=== PATIENT | female | born 1965 | race Caucasian/White ===

== ENCOUNTER 2016-12-30 20:21 | Inpatient (IN) | payer OTHER ==
[~2016-12-30] VITALS: Ht 162.6 cm; Wt 108.0 kg
[~2016-12-30 20:21] MED LIST: ALPR0.5T6 PO; BRIM15DR2 RIGHT EYE; CALC1TAB79 PO; DOCU-159 PO; DORZ10DR6 BOTH EYES; ESCI10TA48 PO; FAMO20TA18 PO; GABA-526 PO; HYDR-3012 PO; HYDR-902 PO; LANT3I SC; MEMA14CA PO; NEPH PO; NITR-58 PO; NOVO3I SC; ONDA4TAB14 PO; OXYB5TAB7 PO; POLY17PO6 PO
--- NOTE | 2016-12-30 20:50 | EN ---
Date/Time of Note Date/Time of Note DATE: 12/30/16 TIME: 20:49 ER Progress Note This 51-year-old female with history of acute renal disease, presents here in emergency department for multiple complaints, which initially evaluated in rapid medical evaluation, patient has been having weakness, having cough for 1 month now, fever on-and-off, patient has not had dialysis for 4 days because of weakness, patient also tripped and fell landed on the left shoulder because of the weakness. At this time, considering patient's risk factors and weakness and no dialysis for 4 days, patient is awaiting bed assignment in ER 1 for further evaluation and treatment. Patient is stable at this time, waiting for bed assignment. LONDON ZAMAN NP Dec 30, 2016 20:50
[2016-12-31] VITALS (16 sets, daily range): BP systolic 101–157; BP diastolic 39–74; PULSE 63–69; RESP 18–20; TEMP 97.5; Ht 162.6 cm; Wt 108.0 kg
--- NOTE | 2016-12-31 01:23 | RADRPT ---
PROCEDURE: Portable chest x-ray. CLINICAL INDICATION: Chest pain. TECHNIQUE: Portable AP view of the chest. COMPARISON: 10/29/2016. FINDINGS: No pulmonary edema or conolidation is identified. The cardiac silhouette is enlarged. No pleural e ffusion is seen. There is no pneumothorax. IMPRESSION: 1. No evidence of acute cardiopulmonary disease. 2. Enlarged cardiac silhouette. RPTAT: HTAR .Sahil Hodge MD, MD Date Time Electronically viewed and signed by .Sahil Hodge MD, MD on 12/31/2016 01:23 .R/
--- NOTE | 2016-12-31 01:34 | RADRPT ---
PROCEDURE: CT Brain without contrast. CLINICAL INDICATION: Fall, headache. TECHNIQUE: A CT of the brain was performed utilizing axial sections from the skull base through th e vertex without contrast. Multiplanar re-formations were generated. Images were reviewed on a high- resolution PACS workstation. CTDIvol: 45.01 mGy. DLP: 720.23 mGy-cm. One or more of the following dose reduction techniques were used: - Automated exposure control. - Adjustment of the mA and/or kV according to patient size. - Use of iterative reconstruction technique. COMPARISON: None available FINDINGS: There is mild generalized volume loss. No hydrocephalus is seen. There is no mass effect. No acute intracranial hemorrhage is identified. There is no extra-axial collection. No CT evidence of acute infarction is identified. A small chronic infarction is identified in the left frontal lobe. There i s patchy low attenuation in the supratentorial white matter, a nonspecific finding which most likely represents the sequela of mild chronic microvascular ischemic disease. There are moderate atherosc lerotic arterial calcifications. There is mild mucosal disease in the paranasal sinuses. The visualized mastoid air cells are clear. The ossesous structures are unremarkable. The extracranial soft tissues are unremarkable. The patie nt is status post bilateral lens replacement surgery. IMPRESSION: 1. No acute intracranial pathology. 2. Mild generalized volume loss. 3. Mild chronic microvascular ischemic changes. 4. Small chronic infarction in the left frontal lobe. 5. Atherosclerotic arterial calcifications. RPTAT: HTAR .Sahil Hodge MD, MD Date Time Electronically viewed and signed by .Sahil Hodge MD, on 12/31/2016 01:34 .R/
[2016-12-31] MEDS ORDERED: morphine 4 MG/ML VIAL IV STA (02:24)
[2016-12-31] MEDS ORDERED: ONDANSETRON 4 MG INJ IV STA (02:24)
[2016-12-31 02:25] LABS: BASOPHIL # 0.1 10^3/ul (0.0-0.1); BASOPHILS % 0.5 % (0.0-2.0); EOSINOPHILS # 0.4 10^3/ul (0.0-0.5); EOSINOPHILS % 2.7 % (0.0-7.0); HEMATOCRIT 30.1 % (37.0-47.0); HEMOGLOBIN 10.3 g/dl (12.0-16.0); LYMPHOCYTES # 2.7 10^3/ul (0.8-2.9); LYMPHOCYTES % 19.3 % (15.0-51.0); MEAN CORPUSCULAR HEMOGLOBIN 31.8 pg (29.0-33.0); MEAN CORPUSCULAR VOLUME 93.6 fl (82.0-101.0); MEAN PLATELET VOLUME 9.1 fl (7.4-10.4); MONOCYTE # 0.7 10^3/ul (0.3-0.9); MONOCYTES % 5.2 % (0.0-11.0); NEUTROPHIL # 10.2 10^3/ul (1.6-7.5); NEUTROPHILS % 72.3 % (39.0-77.0); PLATELET COUNT 175 10^3/UL (140-440); RED BLOOD COUNT 3.22 10^6/ul (4.20-5.40); UNCORRECTED WBC 14.1 10^3/ul (4.8-10.8); WHITE BLOOD COUNT 14.1 10^3/ul (4.8-10.8)
[2016-12-31 02:41] LABS: ALBUMIN 4.5 g/dl (3.3-4.9); CHLORIDE 100 mmol/L (97-110)
[2016-12-31 02:42] LABS: POTASSIUM 5.7 mmol/L (3.5-5.1); SODIUM 144 mmol/L (135-144)
[2016-12-31 02:44] LABS: ALANINE AMINOTRANSFERASE 25 IU/L (13-69); ALBUMIN/GLOBULIN RATIO 1.32; ALKALINE PHOSPHATASE 261 IU/L (42-121); ANION GAP 30 (8-16); ASPARTATE AMINO TRANSFERASE 30 IU/L (15-46); BILIRUBIN,INDIRECT 0.1 mg/dl (0-1.1); BILIRUBIN,TOTAL 0.1 mg/dl (0.2-1.3); CARBON DIOXIDE 20 mmol/L (21-31); CREATININE 8.91 mg/dl (0.44-1.00); TOTAL PROTEIN 7.9 g/dl (6.1-8.1)
[2016-12-31 02:45] LABS: CALCIUM 8.3 mg/dl (8.4-10.2); GLUCOSE 160 mg/dl (70-220)
[2016-12-31 02:49] LABS: CONDITION 1; LH ANALYZER COMMENTS 1; SUSPECT 1
[2016-12-31 02:51] LABS: INR 1.06; PROTIME 13.8 Sec (12.2-14.2); PT RATIO 1.1
[2016-12-31 02:52] LABS: PARTIAL THROMBOPLASTIN TIME 20.6 Sec (25.0-35.0)
[2016-12-31 02:55] LABS: B-TYPE NATRIURETIC PEPTIDE 5890 PG/ML (0-125); BLOOD UREA NITROGEN 136 mg/dl (7-20)
[2016-12-31 03:03] LABS: TROPONIN-I < 0.012 ng/ml (0.00-0.12)
--- NOTE | 2016-12-31 05:25 | ERA ---
ER Documentation Chief Complaint Date/Time DATE: 12/31/16 TIME: 05:21 Chief Complaint glf this am, c/o pain left shoulder/arm HPI Morning. Patient says she has been feeling very weak and short of breath. She is that she has missed dialysis for the past week. No nausea no vomiting no chills. No focal neurological complaints. No other current complaints. ROS All systems reviewed and are negative except as per history of present illness. Medications Home Meds Active Scripts Ondansetron (Ondansetron Odt) 4 Mg Tab.rapdis, 4 MG PO Q6H Y for NAUSEA AND/OR VOMITING, #10 TAB Prov:GUILLERMO WHITE MD 11/07/16 Nitrofurantoin Monohyd Macrocr* (Macrobid*) 100 Mg Capsr, 100 MG PO BID for 10 Days, CAP Prov:GUILLERMO WHITE MD 11/07/16 Polyethylene Glycol* (Miralax*) 17 Gm Powd.pack, 17 GM PO DAILY for 30 Days, BOX Prov:BERRY LARA MD 07/04/16 Insulin Glargine* (Lantus*) 100 Unit/Ml Soln, 8 UNIT SC QAM for 30 Days, BOT Prov:BERRY LARA MD 07/04/16 Reported Medications Insulin Aspart* (Novolog Insulin Pen*) 100 Unit/Ml Soln, 0 SC .SLIDING SCALE Q6 , EA 11/06/16 Hydrocodone/Acetaminophen ([place] 10-325 Tablet) 1 Each Tablet, 1 EACH PO Q4, TAB 11/06/16 Calcium Carbonate/Vitamin D3 ([place] 500+D Tablet) 1 Each Tablet, 1 EACH PO DAILY , TAB 11/06/16 Famotidine* (Famotidine*) 20 Mg Tablet, 20 MG PO DAILY, #30 TAB 11/06/16 Hydroxyzine Hcl* (Hydroxyzine Hcl*) 50 Mg Tablet, 50 MG PO Q6H Y for ITCHING, # 30 TAB 11/06/16 Docusate Sodium* (Docusate Sodium*) 100 Mg Capsule, 200 MG PO QHS, #60 CAP 11/06/16 Brimonidine Tartrate* (Alphagan P*) 0.1%-15 Ml Opht Drops, 1 DROP RIGHT EYE BID , #1 EA 01/27/16 Dorzolamide/Timolol* (Dorzolamide/Timolol*) 10 Ml Drops, 1 DROP BOTH EYES BID, # 1 EA 01/27/16 Memantine* (Namenda* XR) 14 Mg Cap.spr.24, 14 MG PO DAILY, #30 TAB 12/22/15 Gabapentin* (Gabapentin*) 600 Mg Tablet, 600 MG PO TID, #180 TAB GABAPENTIN 600 MG TID; 3 CAPS @ HS 12/22/15 Escitalopram Oxalate* (Escitalopram Oxalate*) 10 Mg Tablet, 10 MG PO QAM, #30 TAB 12/22/15 Multivit/Ca Carb/B Cmplx/Fa* (Kacey-Michael*) 1 Tab Tab, 1 TAB PO DAILY, TAB 12/22/15 Alprazolam* (Alprazolam*) 0.5 Mg Tablet, 0.5 MG PO TID, TAB 12/22/15 Oxybutynin Chloride* (Ditropan*) 5 Mg Tablet, 5 MG PO BID 02/21/14 Allergies Allergies: Coded Allergies: Cephalosporins (Verified Allergy, Severe, 11/06/16) Penicillins (Verified Allergy, Mild, 11/06/16) PMhx/Soc History of Surgery: Yes (APPENDECTOMY, HT STENTS X 2, LT ARM FISTULA) Anesthesia Reaction: No Hx Neurological Disorder: No Hx Respiratory Disorders: Yes (ASTHMA) Hx Cardiac Disorders: Yes (HTN, STENTS X 2) Hx Psychiatric Problems: Yes (DEPRESSION, ANXIETY) Hx Miscellaneous Medical Probl: Yes (ASTHMA, HTN, ESRD-DIALYSIS, DEPRESSION, FALL, GLAUCOMA) Hx Alcohol Use: No Hx Substance Use: Yes Hx Tobacco Use: No Smoking Status: Never smoker Physical Exam Vitals Vital Signs Date Time Temp Pulse Resp B/P Pulse Ox O2 Delivery O2 Flow Rate FiO2 12/31/16 02:01 73 20 137/73 99 Room Air 12/31/16 01:00 Nasal Cannula 2.0 12/30/16 20:25 98.2 83 20 169/70 97 Physical Exam Const: [] Head: Atraumatic Eyes: Normal Conjunctiva ENT: Normal External Ears, Nose and Mouth. Neck: Full range of motion..~ No meningismus. Resp: Clear to auscultation bilaterally Cardio: Regular rate and rhythm, no murmurs Abd: Soft, non tender, non distended. Normal bowel sounds Skin: No petechiae or rashes Back: No midline or flank tenderness Ext: No cyanosis, or edema Neur: Awake and alert Psych: Normal Mood and Affect Result Diagram: 12/31/16 0150 12/31/16 0150 Results 24 hrs Laboratory Tests Test 12/31/16 01:50 Activated Partial Thromboplast Time 20.6Sec Alanine Aminotransferase (ALT/SGPT) 25IU/L Albumin 4.5g/dl Albumin/Globulin Ratio 1.32 Alkaline Phosphatase 261IU/L Anion Gap 30 Aspartate Amino Transf (AST/SGOT) 30IU/L B-Type Natriuretic Peptide 5890PG/ML Basophils # 0.110^3/ul Basophils % 0.5% Blood Morphology Comment Blood Urea Nitrogen 136mg/dl Calcium Level 8.3mg/dl Carbon Dioxide Level 20mmol/L Chloride Level 100mmol/L Creatinine 8.91mg/dl Direct Bilirubin 0.00mg/dl Eosinophils # 0.410^3/ul Eosinophils % 2.7% Globulin 3.40g/dl Glucose Level 160mg/dl Hematocrit 30.1% Hemoglobin 10.3g/dl INR International Normalized Ratio 1.06 Indirect Bilirubin 0.1mg/dl Lymphocytes # 2.710^3/ul Lymphocytes % 19.3% Mean Corpuscular Hemoglobin 31.8pg Mean Corpuscular Hemoglobin Concent 34.0g/dl Mean Corpuscular Volume 93.6fl Mean Platelet Volume 9.1fl Monocytes # 0.710^3/ul Monocytes % 5.2% Neutrophils # 10.210^3/ul Neutrophils % 72.3% Nucleated Red Blood Cells # 0.010^3/ul Nucleated Red Blood Cells % 0.0/100WBC Platelet Count 85613^3/UL Potassium Level 5.7mmol/L Prothrombin Time 13.8Sec Prothrombin Time Ratio 1.1 Red Blood Count 3.2210^6/ul Red Cell Distribution Width 18.0% Sodium Level 144mmol/L Total Bilirubin 0.1mg/dl Total Protein 7.9g/dl Troponin I < 0.012ng/ml White Blood Count 14.110^3/ul Current Medications Medications (Trade) Dose Ordered Sig/Renan Route PRN Reason Start Time Stop Time Status Last Admin Dose Admin Morphine Sulfate (morphine) 4 mg ONCE STAT IV 12/31/16 02:24 12/31/16 02:25 DC 12/31/16 03:18 Ondansetron HCl (Zofran Inj) 4 mg ONCE STAT IV 12/31/16 02:24 12/31/16 02:25 DC 12/31/16 03:18 Procedures/MDM EKG: Rate/Rhythm: Normal Sinus Rhythm QRS, ST, T-waves: No changes consistent w/ acute ischemia Impression: No evidence of ischemia or arrhythmia Chest X-ray 1V Interpreted by me: Soft Tissue: No acute abnormalities Bones: No acute abnormalities Mediastinum/Cardiac Silhouette/Lungs: No acute abnormalities Patient's heart failure symptoms is concerning for acute decompensation and will require inpatient workup and monitoring. Further w/u for ischemia, arrhythmia, PE or dissection will be deferred to the inpatient team. Accepting Care Team: Current data and ongoing care discussed. Time: 5:30 AM Primary Provider: Hospitalist Consulting: [XOXOXO] Outstanding Data: none Departure Diagnosis: Primary Impression: CHF (congestive heart failure) Qualified Code: I50.9 - Congestive heart failure, unspecified congestive heart failure chronicity, unspecified congestive heart failure type Condition: Serious CELINA SHEPHERD Dec 31, 2016 05:25
[2016-12-31] MEDS ORDERED: ONDANSETRON 4 MG INJ IV PRN (06:30)
[2016-12-31] MEDS ORDERED: NITROGLYCERIN (SL) 0.4 MG TAB SL PRN (06:30)
[2016-12-31] MEDS ORDERED: hydrOXYzine HCL 50 MG TAB PO PRN (06:30)
[2016-12-31] MEDS ORDERED: ACETAMINOPHEN 325 MG TAB PO PRN (06:30)
[2016-12-31] MEDS ORDERED: NACL 0.9% 3 ML SYG IV SCH (06:30)
[2016-12-31] MEDS ORDERED: DOCUSATE SODIUM 100 MG CAP PO PRN (06:30)
--- NOTE | 2016-12-31 06:33 | HP ---
Date/Time of Note Date/Time of Note DATE: 12/31/16 TIME: 06:16 Assessment/Plan VTE Prophylaxis VTE Prophylaxis Intervention: heparin Lines/Catheters IV Catheter Type (from Nrsg): Saline Lock Assessment/Plan Assessment/Plan 51 yo female with a past medical history of ESRD on HD, Type II DM, Essential Hypertension, Diabetic Neuropathy, Anemia of chronic disease, Obesity, diabetic neuropathy/nephropathy, depression, who came in for generalized weakness, fall and missed dialysis. 1. Generalized weakness - multifactorial - missed dialysis/CHF exac/possible flu - will admit the patient to telemetry, fall precautions 2. CHF exac - acute on chronic diastolic dysfunction - last EF 55% - will consult cardiology, optimize medications, repeat ECHO, cycle cardiac markers, check TSH/Mag, remove fluid via dialysis 3. Leukocytosis - possible influenza - will check influ A/B, cover with broad spectrum because of previous history - Cefepime/Vanc for possible HCAP, de- escalate as needed 4. ESRD on HD - missed dialysis, consult nephro, dialysis as per nephro 5. Essential hypertension - continue home meds 6. Type II DM - check hgba1c, ISS, lantus/novolog 7. Anemia of CKD - monitor H/H, transfuse as needed 8. Depression - continue with lexapro 9. Left shoulder pain - xr left shoulder 10. Obesity - CCD/Renal diet 11. GI ppx - pepcid 12. DVT ppx - heparin answered all of their questions. as per clinical course. this history and physical took greater then 45 minutes to complete HPI/ROS Admit Date/Time Admit Date/Time Dec 31, 2016 at 06:17 am Hx of Present Illness 51 yo female with a past medical history of ESRD on HD, Type II DM, Essential Hypertension, Diabetic Neuropathy, Anemia of chronic disease, Obesity, diabetic neuropathy/nephropathy, depression, who came in for generalized weakness, fall and missed dialysis. The patient had missed her last dialysis session , because she was feeling sick. She has flu-like symptoms, including cough, runny nose, generalized malaise, muscle weakness, fevers/chills, and fatigue. There is a lot of sick contacts because she goes to dialysis. Secondary to her missing her dialysis, she had dizziness and had a fall, did not lose consciousness. She did however hit her left fistula site at that time, and complains of left shoulder pain. Does have shortness of breath, no chest pain. Denies any nausea/vomiting/diarrhea/constipation, urinary/bowel irregularities, or other constitutional symptoms. ECHO: 02/17/2016 Conclusions 1. Normal left ventricular systolic function. Normal left ventricular cavity size. Normal left ventricular wall thickness. Ejection fraction is visually estimated at 55 %. 2. Mitral valve leaflets appear mildly thickened. Trace mitral regurgitation. 3. Estimated peak PA systolic pressure 43 mmHg. There is moderate to severe tricuspid regurgitation. ROS 14 point review of systems completed, please refer to HPI for any positive findings PMH/Family/Social Past Medical History anemia of chronic kidney disease, diabetic neuropathy/nephropathy, depression Medical History: congestive heart failure, coronary artery disease, diabetes, GERD, hypertension, renal disease Past Surgical History left AV fistula, left arm debridement Past Surgical Hx: angioplasty, appendectomy, cholecystectomy Family History Significant Family History: no pertinent family hx Social History Alcohol Use: none Smoking Status: Never smoker Drug Use: none Exam/Review of Systems Vital Signs Vitals Vital Signs Date Time Temp Pulse Resp B/P Pulse Ox O2 Delivery O2 Flow Rate FiO2 12/31/16 02:01 73 20 137/73 99 Room Air 12/31/16 01:00 2.0 12/30/16 20:25 98.2 Exam Exam Gen Mellisa: mild to moderate distress 2/2 to weakness, AAOx4, obese female HEENT: NC/AT, PERRLA, EOMI, no pharyngeal erythema, no tonsillar exudates, no lymphadenopathy, no JVD, no carotid bruits NECK: supple, no thyromegaly THORAX: symmetrical, no obvious deformities CV: S1S2, RRR, no M/G/R Lungs: diminished breath sounds to the bases bilaterally, no overt wheezing, bibasilar crackles Abd: soft, NT/ND, +BS, no rebound, no guarding, neg HSM, protuberant EXT: no edema, no ecchymosis, no clubbing, left upper extremity fistula patent - bruit, pain with movement Neuro: CN II-XII grossly intact, no focal deficits Psych: fair mood and affect Skin: C/D/I Labs Result Diagram: 12/31/1614912/31/[address] brain IMPRESSION: 1. No acute intracranial pathology. 2. Mild generalized volume loss. 3. Mild chronic microvascular ischemic changes. 4. Small chronic infarction in the left frontal lobe. 5. Atherosclerotic arterial calcifications. CXR IMPRESSION: 1. No evidence of acute cardiopulmonary disease. 2. Enlarged cardiac silhouette. BERRY LARA MD Dec 31, 2016 06:27
[2016-12-31] MEDS ORDERED: VANCOMYCIN IV PER PHARMACY XX SCH (07:00)
[2016-12-31] MEDS ORDERED: GLUCOSE GEL 15 GRAM TUBE BUCCAL PRN (08:00)
[2016-12-31] MEDS ORDERED: GLUCAGON 1 MG INJ IM PRN (08:00)
[2016-12-31] MEDS: INSULIN ASPART [NOVOLOG] 3 ML PEN SC SCH ×4 (08:00→20:43)
[2016-12-31] MEDS ORDERED: DEXTROSE 50% 50 ML SYRINGE IV PRN ×2 (08:00)
[2016-12-31] MEDS ORDERED: GLUCOSE GEL 15 GRAM TUBE PO PRN ×2 (08:00)
[2016-12-31] MEDS: MEMANTINE 5 MG TAB PO SCH ×2 (09:00→20:30)
[2016-12-31] MEDS ORDERED: ALPRAZOLAM 0.5 MG TAB PO SCH (09:00)
[2016-12-31] MEDS: ALPRAZOLAM 0.25 MG TAB PO SCH ×3 (09:00→20:30)
[2016-12-31] MEDS: OXYBUTYNIN 5 MG TAB PO SCH ×2 (09:00→20:30)
[2016-12-31] MEDS ORDERED: FAMOTIDINE 20 MG INJ IV SCH (09:00)
[2016-12-31] MEDS: GABAPENTIN 300 MG CAP PO SCH ×3 (09:00→20:30)
[2016-12-31] MEDS ORDERED: CEFEPIME 1GM/50 ML (PMX) 50 ML IVPB SCH (09:00)
[2016-12-31] MEDS: POLYETHYLENE GLYCOL 17 GM PACKET PO SCH (09:00)
[2016-12-31] MEDS: ESCITALOPRAM 10 MG TAB PO SCH (09:00)
[2016-12-31] MEDS: MULTIVIT/CA CARB/B CMPLX/FA TAB PO SCH (09:00)
[2016-12-31] MEDS ORDERED: NITROFURANTOIN (SR) 100 MG CAP PO SCH (09:00)
[2016-12-31] MEDS: CALCIUM/VITAMIN D (500/200) TAB PO SCH (09:00)
[2016-12-31] MEDS: BRIMONIDINE 0.1% 5 ML OPH RIGHT EYE SCH ×2 (09:02→20:29)
[2016-12-31] MEDS: SOD CHLORIDE 0.9% 1,000 ML IV SCH (09:02)
[2016-12-31] MEDS: DORZOLAMIDE/TIMOLOL 10 ML OPH BOTH EYES SCH ×2 (09:03→20:29)
[2016-12-31] MEDS: HEPARIN 5,000 UNIT/0.5 ML SYG SC SCH ×2 (09:09→20:40)
[2016-12-31] MEDS ORDERED: VANCOMYCIN 2 GM in SOD CHLORIDE 0.9% 500 ML IVPB SCH (09:10)
[2016-12-31] MEDS: INSULIN GLARGINE [LANtus] 3 ML PEN SC SCH (09:17)
[2016-12-31] MEDS: LEVOFLOXACIN 500MG/D5W (PMX) 100 ML IVPB SCH ×2 (10:37→12:07)
[2016-12-31 10:39] LABS: CREATINE KINASE 32 IU/L (23-200)
[2016-12-31 10:40] LABS: CHOL/HDL RATIO 2.2 RATIO; MAGNESIUM 2.6 mg/dl (1.7-2.5)
[2016-12-31 10:48] LABS: CK-MB 1.28 ng/ml (0.0-2.4)
[2016-12-31 10:54] LABS: TROPONIN-I < 0.012 ng/ml (0.00-0.12)
[2016-12-31 11:11] LABS: THYROID STIMULATING HORMONE 2.78 MIU/L (0.465-4.680)
--- NOTE | 2016-12-31 12:38 | RADRPT ---
PROCEDURE: XR Left Shoulder. CLINICAL INDICATION: Left shoulder pain. TECHNIQUE: Two views. Frontal and scapular Y-view. COMPARISON: No prior study is available for comparison. FINDINGS: There is no fracture or dislocation. The soft tissues are normal. Articular surfaces are intact. There is no lytic or blastic lesion. Surgical clips are present in the soft tissues of the left upper extremity medially. IMPRESSION: 1. Prior left upper extremity soft tissue surgery. 2. Otherwise unremarkable images of the left shoulder. RPTAT: QQ .Miguelito Stroud MD, MD Date Time Electronically viewed and signed by .Miguelito Stroud MD, MD on 12/31/2016 12:37 .R/
--- NOTE | 2016-12-31 14:47 | CONS ---
DATE OF ADMISSION: 12/31/2016 DATE OF CONSULTATION: 12/31/2016 INFECTIOUS DISEASE CONSULTATION REASON FOR CONSULTATION: Antibiotic management. HISTORY OF PRESENT ILLNESS: Martita Lua is a 51-year-old female with numerous problems including end-stage renal disease, on hemodialysis, who comes in for generalized weakness, a fall, and missed dialysis. Her past problems include: 1. End-stage renal disease on hemodialysis. 2. Adult-onset diabetes mellitus. 3. Essential hypertension. 4. Diabetes. 5. Diabetic neuropathy. 6. Anemia of chronic disease. 7. Obesity. 8. Depression. Acutely, the patient missed her last dialysis on 12/26/2016 because she was feeling sick wi th flu-like illness, cough, runny nose, generalized malaise. She developed dizziness, had a fall, b ut did not lose consciousness. She did, however, hit her left fistula site at the time and complain s of left shoulder pain. She has shortness of breath, no chest pain. She denies any nausea, vomiti ng, diarrhea, constipation, urinary or bowel irregularities, or other constitutional symptoms. On a dmission, her white count was 14.1, H and H of 10.3 and 30.1, platelet count 175,000. BUN and creat inine 136/8.91. CT scan of the brain showed no acute intracranial pathology, mild generalized volum e loss, mild chronic ischemic changes, small chronic infarction in the left frontal lobe, and athero sclerotic arterial calcifications. She had no evidence for acute cardiopulmonary disease, enlarged cardiac silhouette. PAST MEDICAL HISTORY: Includes GERD, coronary artery disease with congestive heart failure, and as noted, diabetes and end-stage renal disease. She has a left AV fistula. She had a left arm debride ment. She had angioplasty, appendectomy, and cholecystectomy. SOCIAL HISTORY: She does not smoke, drink or abuse drugs. ALLERGIES: NONE TO PENICILLIN, SULFA, OR FOODS. MEDICATIONS: Per chart. REVIEW OF SYSTEMS: As per HPI. PHYSICAL EXAMINATION: GENERAL: The patient is a relatively obese, well-developed, female who is alert, responsive, in no acute distress. VITAL SIGNS: Stable. She is afebrile. SKIN: Without generalized rash. HEENT: Within normal limits. NECK: Supple. LYMPH NODES: None palpable. CHEST: Decreased breath sounds at the bases. HEART: Without murmur or gallop. ABDOMEN: Soft, nontender, without organosplenomegaly or masses. EXTREMITIES: She has a left upper extremity fistula with a bruit, without cyanosis, clubbing, or ed karen. RECTAL AND GENITAL: Deferred. NEUROLOGIC: No focal neurological abnormalities. ANCILLARY LABORATORY DATA: Her 2-D echo showed a good ejection fraction of 55%, normal left ventric ular cavity size. IMPRESSION AND PLAN: The patient is started on vancomycin and also cefepime. These were discontinu ed, and she is currently on Levaquin. The patient was mostly short of breath. She missed dialysis. SHE IS SUPPOSEDLY ALLERGIC TO PENICILLIN AND CEPHALOSPORINS. She has some leukocytosis, etiology of which is unclear. She also has a cough, and she has had intermittent fevers. Currently, she is afebrile. Will observe her on current therapy on Levaquin. She has already received vancomycin as noted and cefepime. I will dictate my findings to the hospitalist. Dictated By: AMINTA STALLWORTH MD, JD/RERE Conf#: [id number] DID#: [id number]
[2016-12-31 16:20] LABS: CREATINE KINASE 29 IU/L (23-200)
[2016-12-31 16:29] LABS: CK-MB 1.28 ng/ml (0.0-2.4)
[2016-12-31 16:33] LABS: TROPONIN-I < 0.012 ng/ml (0.00-0.12)
--- NOTE | 2016-12-31 18:33 | RADRPT ---
Echocardiogram Report Patient Name: MARC CONTRERAS Gender: Female Date: 1965 Study Date: 31-Dec-2016 Masonry Contractor: Paolo Dee [facility] Location: [id number] Ref. Physician: BERRY LARA Quality: Good Procedures: Transthoracic echocardiogram with complete 2D, M-Mode, and doppler examination. Indications: Congestive Heart Failure. 2D/M Mode Doppler Measurement Value Normal Ranges Measurement Value Normal Ranges LVIDd 2D 5.4 3.5 - 5.6 cm AV Mean Nando 1.6 m/sec LVIDs 2D 3.3 2.1 - 4.1 cm AV Mean PG 11.0 mmHg LVPWd 2D 0.9 0.6 - 1.1 cm AV Peak Nando 2.1 m/sec IVSd 2D 1.0 0.6 - 1.1 cm AV Peak PG 17.8 mmHg AoR Diam 2D 2.3 2.0 - 3.7 cm AV VTI 53.2 cm EDV 2D 141.4 cm3 LVOT Peak Nando 1.4 m/sec ESV 2D 35.7 cm3 LVOT Peak PG 7.4 mmHg LA Dimen 2D 4.1 2.3 - 4.0 cm MV E Peak Nando 1.0 m/sec MV A Peak Nando 0.8 m/sec MV E/A 1.2 MV Decel Time 177 msec MV Decel [place] 6 MV E/A 1.2 TR Peak Nando 3.3 m/sec TR Peak PG 43.0 mmHg RVSP 46.0 mmHg Findings Left Ventricle: Normal left ventricular systolic function. Normal left ventricular cavity size. Normal left ventricular wall thickness. Ejection fraction is visually estimated at 55 %. Abnormal Diastolic Function. Right Ventricle: Normal right ventricular size. Normal right ventricular systolic function. Left Atrium: There is mild enlargement of left atrium. LA Dimension4.10 cm. Right Atrium: The right atrium is normal in size. Mitral Valve: Normal appearance of the mitral valve. Mild mitral annular calcification. Trace mitral regurgitation. Aortic Valve: Aortic sclerosis without stenosis. Aortic cusps appear mildly calcified. No aortic regurgitation. Tricuspid Valve: Normal appearance of the tricuspid valve. Estimated peak PA systolic pressure 46 mmHg. There is mild to moderate tricuspid regurgitation. Pulmonic Valve: Normal pulmonic valve appearance. Pericardium: Normal pericardium with no significant pericardial effusion. Aorta: Normal aortic root. IVC: Normal size and normal respiratory collapse consistent with normal right atrial pressure. Conclusions 1.Normal left ventricular systolic function. Normal left ventricular cavity size. Normal left ventricular wall thickness. Ejection fraction is visually estimated at 55 %. Abnormal Diastolic Function. 2.Normal right ventricular size. Normal right ventricular systolic function. 3.There is mild enlargement of left atrium. 4.The right atrium is normal in size. 5.Estimated peak PA systolic pressure 46 mmHg. There is mild to moderate tricuspid regurgitation. 6.Aortic sclerosis without stenosis. No aortic regurgitation. 7.Trace mitral regurgitation. 8.Normal pericardium with no significant pericardial effusion. Electronically Signed By: Brian Alvarenga 31-Dec-2016 18:33:21 -0800 Patient Name: MARC CONTRERAS Study Date: 31-Dec-2016 [id number]
--- NOTE | 2016-12-31 18:51 | CONS ---
DATE OF ADMISSION: 12/31/2016 DATE OF CONSULTATION: 12/31/2016 TYPE OF CONSULTATION: Cardiology. REASON FOR CONSULTATION: Congestive heart failure. REQUESTING PHYSICIAN: Dr. Velázquez from the hospitalist service. HISTORY OF PRESENT ILLNESS: Ms. Lua is a 51-year-old female with a history of end-stage renal disease on hemodialysis, diabetes mellitus, hypertension, anemia, obesity, depression who initially presented with complaints of generalized weakness, shortness of breath, stating she had missed dialy sis. Upon arrival, temperature of 98.2, blood pressure 169/70, pulse 83, respiratory rate 20, satur ating 97%. The patient's labs revealed a white cell count of 14.1, hemoglobin 10.3, platelet count of 175. Sodium of 144, potassium of 5.7, creatinine 8.91, BUN of 136, AST 30, ALT 25. Troponin neg ative. BNP 5890. INR 1.0. The patient underwent a shoulder x-ray revealing prior left upper extre mity soft-tissue surgery and a chest x-ray revealing no evidence of acute cardiopulmonary disease an d a large cardiac silhouette and a head CT that revealed no acute intracranial pathology, mild gener alized volume loss, mild chronic microvascular ischemic changes, small chronic infarcts in left fron ramon lobe. The patient's electrocardiogram revealed normal sinus rhythm, rate of 72, normal axis, no rmal intervals with nonspecific ST and T abnormalities diffusely. The patient subsequently admitted to the floor and since admit to the floor has stable vital signs. The patient has been placed on l evofloxacin and is to undergo hemodialysis for volume removal. PAST MEDICAL HISTORY: As above in HPI. MEDICATIONS CURRENTLY IN HOSPITAL: 1. Levofloxacin ____ mg IV q.12. 2. Heparin 5000 subQ q.12. 3. Alphagan eye drops. 4. Vitamin D. 5. ____ eye drops. 6. Lexapro. 7. Neurontin 600 mg t.i.d. 8. Lantus. 9. Ditropan. 10. MiraLax. 11. Namenda 5 mg b.i.d. 12. Xanax 0.5 mg p.o. t.i.d. 13. Sublingual nitroglycerin p.r.n. 14. Tylenol p.r.n. 15. Mullan p.r.n. 16. Colace p.r.n. ALLERGIES: 1. CEPHALOSPORINS. 2. PENICILLINS. SOCIAL HISTORY: No tobacco, ETOH, illicit drug use. FAMILY HISTORY: No history of sudden cardiac or early CAD. REVIEW OF SYSTEMS: As above in HPI. CONSTITUTIONAL: No fevers, chills. PULMONARY: Shortness of breath. CARDIOVASCULAR: Congestive heart failure. GASTROINTESTINAL: No vomiting. GENITOURINARY: End-stage renal disease. PSYCHIATRIC: Positive psychiatric history by medications. NEUROLOGIC: No documented history of CVA. PHYSICAL EXAMINATION: VITAL SIGNS: Temperature of 98.6, blood pressure 118/59, pulse 64, respiratory rate 18, saturating 97%. GENERAL: The patient is alert, awake, complaining of shortness of breath. NECK: JVP approximately 9 to 10 cm water. CHEST: Bibasilar crackles. HEART: Regular rate and rhythm. S1, S2. I/ systolic murmur. Nondisplaced PMI. ABDOMEN: Positive bowel sounds, soft. EXTREMITIES: Trace edema. Pulses 1+ bilaterally at posterior tibial. LABORATORIES: As above in HPI with most recently from today: Troponin negative x3. LDL 84, HDL 80 . TSH 2.7. Magnesium 2.6. IMAGING STUDIES: As above in HPI. No further imaging studies for my review at this time. ELECTROCARDIOGRAM: As above in HPI. No further electrocardiograms for my review at this time. IMPRESSION: 1. Abnormal electrocardiogram, assess for acute coronary syndrome. 2. Shortness of breath, assess for congestive heart failure. 3. Increased BNP, assess for congestive heart failure. 4. Hypertension, currently under reasonable control. 5. End-stage renal disease on hemodialysis. 6. Diabetes mellitus. 7. Psychiatric disorder. 8. Hyperkalemia. RECOMMENDATIONS: 1. At this time would maintain the patient on telemetry monitoring to follow rhythm and rate contro l closely. 2. Complete the patient's rule-out for myocardial infarction, ensure this patient's constellation o f symptoms is not due to an acute coronary syndrome such as acute myocardial infarction. 3. Continue the patient's hemodialysis for volume removal. 4. Check a fasting lipid panel for general risk stratification, initiate lipid-lowering medication as necessary. 5. Check a 2D echo for reassessment of the patient's ejection fraction since it's been almost a yea r since most recent assessment. 6. Follow the patient's blood pressure closely with likely need for initiation of low-dose antihype rtensives and also place patient on low-dose hydralazine afterload reduction. 7. Continue the patient's antibiotics and follow up all culture data. Thank you for allowing me to take part in the care of this patient. I will continue to follow along very closely with you with further recommendations to be made as the patient progresses through her inpatient hospital clinical course. Dictated By: JORDI SARABIA/RERE Conf#: [id number] DID#: [id number] CC: BERRY VELÁZQUEZ MD;*EndCC*
--- NOTE | 2016-12-31 20:28 | QN ---
Documentation Comment [id number] RENAL CONSULT BRANDO TREVIÑO MD Dec 31, 2016 20:28
--- NOTE | 2016-12-31 23:05 | CONS ---
DATE OF ADMISSION: 12/31/2016 DATE OF CONSULTATION: TYPE OF CONSULTATION: Nephrology. HISTORY OF PRESENT ILLNESS: The patient has a history of ESRD, history of left arm fistula, history of diabetes mellitus, diabetic neuropathy, anemia, history of psychiatric disorder, history of foot cellulitis, history of UTI, history of pleural effusion, presented back with missing dialysis and is being admitted for further management. The patient denies any chest pain, palpitation right now. PAST MEDICAL HISTORY: Positive for ESRD, hypertension, diabetes mellitus, psychiatric disorder, anemia, history of encephalopathy. ALLERGY HISTORY: 1. CEPHALOSPORIN. 2. PENICILLIN. SOCIAL HISTORY: Negative. FAMILY HISTORY: Negative. MEDICATION HISTORY: The patient is on: 1. Tylenol. 2. Xanax. 3. Calcium. 4. Vitamin D. 5. Docusate sodium. 6. Lexapro. 7. Pepcid. 8. Gabapentin. 9. Glucagon. 10. Levofloxacin. 11. Nitroglycerin. 12. Zofran. 13. MiraLax. REVIEW OF SYSTEMS: HEENT: Unremarkable. RESPIRATORY: Unremarkable. CARDIOVASCULAR: Unremarkable. ABDOMEN: No abdominal pain. EXTREMITIES: Swelling. CENTRAL NERVOUS SYSTEM: Unremarkable. PHYSICAL EXAMINATION: GENERAL: Obese, overweight female, awake, alert. VITAL SIGNS: Pulse of 50, blood pressure 118/59. HEENT: Head is atraumatic, normocephalic. The patient's pupils PERRLA. Conjunctivae: No icterus. NECK: Supple. LUNGS: Basilar rales noted. CARDIOVASCULAR: S1, S2 normal. ABDOMEN: Soft, obese. Bowel sounds present. No pulsatile, no palpable mass. EXTREMITIES: There is no cyanosis, clubbing. Edema positive. CENTRAL NERVOUS SYSTEM: The patient is awake, alert, moving both upper and lower extremities. AV fistula in left upper extremity noted. LABORATORY DATA: WBC 14.1, hematocrit 30.1, platelet count of _ The patient has sodium 144, potassium 5.7, BUN 136, creatinine 8.91. IMPRESSION: The patient has: 1. Uremia. 2. End-stage renal disease. 3. Hypertension. 4. Diabetes mellitus. 5. Atherosclerotic heart disease. 6. Dyslipidemia. 7. Diabetic nephropathy, retinopathy and neuropathy. 8. Hyperkalemia. 9. Leukocytosis. 10. Anemia. 11. History of arteriovenous fistula placement, left upper extremity. PLAN: Continue diabetic, renal diet. Hemodialysis has been ordered. The patient's electrolytes will be monitored. The patient may need 1 more dialysis tomorrow based upon the laboratory data. Thank you, Dr. Velázquez, for kindly asking me to see this patient in nephrology consultation. Dictated By: BRANDO TREVIÑO MD BS/RERE Conf#: [id number] DID#: [id number] MTDD
[2017-01-01] VITALS (12 sets, daily range): BP systolic 110–144; BP diastolic 52–71; PULSE 65–69; RESP 18–20
[2017-01-01] MEDS: HYDROCODONE/APAP (5/325) TAB PO PRN ×2 (00:21→08:31)
[2017-01-01 01:45] LABS: CREATINE KINASE 28 IU/L (23-200)
[2017-01-01 01:56] LABS: CK-MB 1.07 ng/ml (0.0-2.4)
[2017-01-01 01:59] LABS: TROPONIN-I < 0.012 ng/ml (0.00-0.12)
[2017-01-01] MEDS: SOD CHLORIDE 0.9% 1,000 ML IV SCH (04:46)
[2017-01-01 06:56] LABS: CK-MB 1.01 ng/ml (0.0-2.4)
[2017-01-01 06:59] LABS: TROPONIN-I 0.016 ng/ml (0.00-0.12)
[2017-01-01 07:14] LABS: CHOL/HDL RATIO 2.4 RATIO
[2017-01-01 07:44] LABS: POTASSIUM 4.9 mmol/L (3.5-5.1)
[2017-01-01 07:47] LABS: CREATININE 6.16 mg/dl (0.44-1.00)
[2017-01-01 07:48] LABS: CALCIUM 8.1 mg/dl (8.4-10.2)
[2017-01-01] MEDS: BRIMONIDINE 0.1% 5 ML OPH RIGHT EYE SCH ×2 (08:08→21:36)
[2017-01-01] MEDS: DORZOLAMIDE/TIMOLOL 10 ML OPH BOTH EYES SCH ×2 (08:08→21:35)
[2017-01-01] MEDS: FAMOTIDINE 20 MG INJ IV SCH (08:08)
[2017-01-01] MEDS: ESCITALOPRAM 10 MG TAB PO SCH (08:09)
[2017-01-01] MEDS: OXYBUTYNIN 5 MG TAB PO SCH ×2 (08:09→21:36)
[2017-01-01] MEDS: MEMANTINE 5 MG TAB PO SCH ×2 (08:09→21:38)
[2017-01-01] MEDS: MULTIVIT/CA CARB/B CMPLX/FA TAB PO SCH (08:09)
[2017-01-01] MEDS: GABAPENTIN 300 MG CAP PO SCH ×3 (08:09→21:38)
[2017-01-01] MEDS: ALPRAZOLAM 0.25 MG TAB PO SCH ×3 (08:09→21:36)
[2017-01-01] MEDS: CALCIUM/VITAMIN D (500/200) TAB PO SCH (08:09)
[2017-01-01] MEDS: INSULIN ASPART [NOVOLOG] 3 ML PEN SC SCH ×4 (08:10→21:00)
[2017-01-01] MEDS: INSULIN GLARGINE [LANtus] 3 ML PEN SC SCH (08:12)
[2017-01-01] MEDS: HEPARIN 5,000 UNIT/0.5 ML SYG SC SCH ×2 (08:12→21:39)
[2017-01-01] MEDS: POLYETHYLENE GLYCOL 17 GM PACKET PO SCH (08:19)
[2017-01-01 08:53] LABS: BASOPHILS % 0.1 % (0.0-2.0); EOSINOPHILS # 0.2 10^3/ul (0.0-0.5); EOSINOPHILS % 3.6 % (0.0-7.0); HEMOGLOBIN 9.7 g/dl (12.0-16.0); LYMPHOCYTES # 1.5 10^3/ul (0.8-2.9); LYMPHOCYTES % 22.7 % (15.0-51.0); MEAN CORPUSCULAR HEMOGLOBIN 31.6 pg (29.0-33.0); MEAN CORPUSCULAR HGB CONC 33.5 g/dl (32.0-37.0); MEAN CORPUSCULAR VOLUME 94.2 fl (82.0-101.0); MEAN PLATELET VOLUME 8.5 fl (7.4-10.4); MONOCYTE # 0.5 10^3/ul (0.3-0.9); MONOCYTES % 8.3 % (0.0-11.0); NEUTROPHIL # 4.2 10^3/ul (1.6-7.5); NEUTROPHILS % 65.3 % (39.0-77.0); PLATELET COUNT 176 10^3/UL (140-440); RED BLOOD COUNT 3.07 10^6/ul (4.20-5.40); RED CELL DISTRIBUTION WIDTH 17.8 % (11.5-14.5); UNCORRECTED WBC 6.4 10^3/ul (4.8-10.8); WHITE BLOOD COUNT 6.4 10^3/ul (4.8-10.8)
[2017-01-01 08:59] LABS: CONDITION 1; LH ANALYZER COMMENTS 1
--- NOTE | 2017-01-01 13:48 | CONS ---
Date/Time of Note Date/Time of Note DATE: 01/01/17 TIME: 13:32 Assessment/Plan Assessment/Plan Additional Assessment/Plan Dysphagia * Passed swallow evaluation * Esophagram with Gastrografin ordered * Start clear liquid diet * EGD on Friday with Dr. Lu if clinically indicated CHF/HTN * Cardiology following ESRD * on HD Type II DM Anemia * Likely secondary to CKD * Stool OB Obesity Further recommendations pending clinical course Patient seen in collaboration with Dr. Lu Consultation Date/Type/Reason Admit Date/Time Dec 31, 2016 at 06:17 am Type of Consultation: Gastroenterology Reason for Consultation Dysphagia Hx of Present Illness 51 YO obese F reports issues with swallowing for the last 2 months. Patient reports intermittent vomiting secondary to feeling that food is lodged at the bottom of her throat. 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 Patient states that tumor was preventing p.o. intake and she had a G-tube placed secondary to dysphagia. Patient states that the tumor resolved on its own without any type of treatment. She states that one day she was vomiting and tumor dislodged and was in emesis. Patient states she was previously treated at [facility] for esophageal tumor. Patient patient denies fever, chills, melena stools, and diarrhea. Patient reports intermittent epigastric pain but unsure of onset. Patient seems to have a constellation of symptoms and may be secondary to underlying mental health disorder. Patient also reports history of lymphoma that was diagnosed 2 years ago but unable to provide name of oncologist in her care. Patient reports completing 4 rounds of chemotherapy 2 years ago and does not recall any recent outpatient follow-up. Patient also has PMH of SRD on HD, Type II DM, Essential Hypertension, Diabetic Neuropathy, Anemia of chronic disease, Obesity, diabetic neuropathy/nephropathy , and depression. Past Medical History Medical History: congestive heart failure, coronary artery disease, diabetes, GERD, hypertension, renal disease Past Surgical History Past Surgical Hx: angioplasty, appendectomy, cholecystectomy Social History Alcohol Use: none Smoking Status: Never smoker Drug Use: none Exam/Review of Systems Vital Signs Vitals Vital Signs Date Time Temp Pulse Resp B/P Pulse Ox O2 Delivery O2 Flow Rate FiO2 01/01/17 12:23 97.9 67 18 110/52 97 12/31/16 06:45 Room Air 12/31/16 01:00 2.0 Intake and Output 12/31/16 12/31/16 01/01/17 15:00 23:00 07:00 Intake Total 750 ml Output Total 4500 ml Balance -3750 ml Exam Constitutional: alert, obese, oriented, well developed Psych: nl mood/affect Head: atraumatic Eyes: EOMI, nl conjunctiva, nl lids ENMT: nl external ears & nose Neck: non-tender Respiratory: normal air movement Cardiovascular: regular rate and rhythm Gastrointestinal: soft, tender (Epigastric) Musculoskeletal: nl extremities to inspection Neurological: BUTTER MAKER II-XII intact Results Result Diagram: 01/01/17 0557 01/01/17 0557 Results 24 hrs Laboratory Tests Test 12/31/16 14:48 12/31/16 17:20 12/31/16 20:43 01/01/17 00:38 Creatine Kinase 29 28 Creatine Kinase Index 4.4 3.8 Creatinine Kinase MB (Mass) 1.28 1.07 Troponin I < 0.012 < 0.012 Bedside Glucose 215 180 Test 01/01/17 05:57 01/01/17 07:51 01/01/17 11:25 Anion Gap 22 #H Basophils # 0.0 Basophils % 0.1 Blood Morphology Comment Blood Urea Nitrogen 77 #H Calcium Level 8.1 L Carbon Dioxide Level 26 Chloride Level 97 Cholesterol Level 180 Cholesterol/HDL Ratio 2.4 Creatine Kinase 30 Creatine Kinase Index 3.4 Creatinine 6.16 #H Creatinine Kinase MB (Mass) 1.01 Eosinophils # 0.2 Eosinophils % 3.6 Glucose Level 184 HDL Cholesterol 74 Hematocrit 29.0 L Hemoglobin 9.7 L LDL Cholesterol, Calculated 75 Lymphocytes # 1.5 Lymphocytes % 22.7 Mean Corpuscular Hemoglobin 31.6 Mean Corpuscular Hemoglobin Concent 33.5 Mean Corpuscular Volume 94.2 Mean Platelet Volume 8.5 Monocytes # 0.5 Monocytes % 8.3 Neutrophils # 4.2 Neutrophils % 65.3 Nucleated Red Blood Cells # 0.0 Nucleated Red Blood Cells % 0.0 Platelet Count 176 Potassium Level 4.9 Red Blood Count 3.07 L Red Cell Distribution Width 17.8 H Sodium Level 140 Triglycerides Level 154 H Troponin I 0.016 White Blood Count 6.4 # Bedside Glucose 141 219 Medications Medications Current Medications Sodium Chloride (NS) 1,000 ml @ 40 mls/hr Q24H IV Last administered on t 09:02; Admin Dose 40 MLS/HR; Start 12/31/16 at 06:04 Ondansetron HCl (Zofran Inj) 4 mg Q6H PRN IV NAUSEA AND/OR VOMITING; Start at 06:30 Nitroglycerin (Nitroglycerin (Sl Tab) 0.4 Mg) 1 tab Q5M PRN SL CHEST PAIN; Start 12/31/16 at 06:30 Acetaminophen (Tylenol Tab) 650 mg Q6H PRN PO PAIN LEVEL 1-3 OR FEVER; Start at 06:30 Acetaminophen/ Hydrocodone Bitart ([place] (5/325)) 1 tab Q6H PRN PO PAIN LEVEL 4 -6 Last administered on 01/01/17 08:31; Admin Dose 1 TAB; Start 12/31/16 at 06: 30 Docusate Sodium (Colace) 100 mg Q12H PRN PO CONSTIPATION Last administered on 20:45; Admin Dose 100 MG; Start 12/31/16 at 06:30 Heparin Sodium (Porcine) (Heparin (5000 Units/0.5 ml)) 5,000 unit Q12 SC Last administered on 01/01/17 08:12; Admin Dose 5,000 UNIT; Start 12/31/16 at 09:00 Brimonidine Tartrate (Alphagan P 0.1%) 1 drop BID RIGHT EYE Last administered on 01/01/17 08:08; Admin Dose 1 DROP; Start 12/31/16 at 09:00 Calcium/Vitamin D (Oyster Shell/ Vit-D (500/200)) 1 tab DAILY PO Last administered on 01/01/17 08:09; Admin Dose 1 TAB; Start 12/31/16 at 09:00 Dorzolamide/ Timolol (Cosopt) 1 drop BID BOTH EYES Last administered on 08:08; Admin Dose 1 DROP; Start 12/31/16 at 09:00 Escitalopram Oxalate (Lexapro) 10 mg QAM PO Last administered on 01/01/17 08: 09; Admin Dose 10 MG; Start 12/31/16 at 09:00 Gabapentin (Neurontin) 600 mg TID PO Last administered on 01/01/17 12:15; Admin Dose 600 MG; Start 12/31/16 at 09:00 Hydroxyzine HCl (Atarax) 50 mg Q6H PRN PO ITCHING; Start 12/31/16 at 06:30 Insulin Glargine (Lantus) 8 unit QAM SC Last administered on 01/01/17 08:12; Admin Dose 8 UNIT; Start 12/31/16 at 09:00 Multivit/Ca Carb/ B Cmplx/FA/Prenat (Kacey-Michael) 1 tab DAILY PO Last administered on 01/01/17 08:09; Admin Dose 1 TAB; Start 12/31/16 at 09:00 Oxybutynin Chloride (Ditropan) 5 mg BID PO Last administered on 01/01/17 08:09 ; Admin Dose 5 MG; Start 12/31/16 at 09:00 Polyethylene Glycol (Miralax) 17 gm DAILY PO ; Start 12/31/16 at 09:00 Memantine (Namenda) 5 mg BID PO Last administered on 01/01/17 08:09; Admin Dose 5 MG; Start 12/31/16 at 09:00 Alprazolam (Xanax) 0.5 mg TID PO Last administered on 01/01/17 12:15; Admin Dose 0.5 MG; Start 12/31/16 at 09:00 Miscellaneous Information 1 ea NOTE XX ; Start 12/31/16 at 08:00 Glucose (Glutose) 15 gm Q15M PRN PO DECREASED GLUCOSE; Start 12/31/16 at 08:00 Glucose (Glutose) 22.5 gm Q15M PRN PO DECREASED GLUCOSE; Start 12/31/16 at 08: 00 Dextrose (D50w Syringe) 25 ml Q15M PRN IV DECREASED GLUCOSE; Start 12/31/16 at 08:00 Dextrose (D50w Syringe) 50 ml Q15M PRN IV DECREASED GLUCOSE; Start 12/31/16 at 08:00 Glucagon (Glucagen) 1 mg Q15M PRN IM DECREASED GLUCOSE; Start 12/31/16 at 08:00 Glucose 15 gm 15 gm Q15M PRN BUCCAL DECREASED GLUCOSE; Start 12/31/16 at 08:00 Levofloxacin/ Dextrose (Levaquin 250 Mg/ D5W 50 ml (Pmx)) 50 ml @ 50 mls/hr Q48H IVPB ; Start 01/02/17 at 10:30 Famotidine (Pepcid Iv) 20 mg DAILY IV Last administered on 01/01/17 08:08; Admin Dose 20 MG; Start 01/01/17 at 09:00 Hydralazine HCl (Apresoline) 25 mg Q12 PO Last administered on 01/01/17 08:22 ; Admin Dose 25 MG; Start 12/31/16 at 21:00 TWAN LUDWIG Jan 01, 2017 13:48
--- NOTE | 2017-01-01 14:05 | PN ---
DATE: 01/01/2017 INFECTIOUS DISEASE PROGRESS NOTE SUBJECTIVE: The patient is alert, sitting up in a chair, complaining of right flank pain, no fevers . LABORATORY DATA: WBC today 6.4, no shift, no bands. INDWELLINGS: Left upper extremity AV fistula. MICROBIOLOGY: Nares swab came back negative for MRSA, influenza swab was negative. ANTIMICROBIALS: The patient is on Levaquin. PHYSICAL EXAMINATION: GENERAL: Morbidly obese, middle-aged woman who is alert, in no distress. HEENT: Head atraumatic, normocephalic. Sclerae anicteric. Buccal mucosa pink. NECK: Supple, trachea midline. CHEST: Rise symmetrical. Breath sounds clear. HEART: S1, S2. ABDOMEN: Soft. Bowel sounds present. Positive right CVA tenderness. The patient is also complain ing of some pain on the left upper quadrant, but tolerates palpation. EXTREMITIES: Without cyanosis. ASSESSMENT: 1. Systemic inflammatory response syndrome with leukocytosis on admission. 2. Right flank tenderness, possible urinary tract infection. 3. Morbid obesity. 4. End-stage renal disease, hemodialysis dependent. 5. Diabetes with diabetic neuropathy. PLAN: The patient remains stable. White blood cell count tracing down. We are going to straight c ath her urine and send it for culture. Consider ultrasound of the abdomen or CT to evaluate for nasreen n. Dictated By: SIOBHAN WATSON SPA ASSOCIATE for AMINTA TORREZ/RERE Conf#: [id number] DID#: [id number]
--- NOTE | 2017-01-01 16:00 | RADRPT ---
Vent Rate: 64 bpm RR Interval: 0 msec OK Interval: 178 msec QRS Duration: 84 msec QT Interval: 462 msec QTC Interval: 476 msec P-R-T [place]: 40 - 23 - 53 degrees Normal sinus rhythm Normal ECG Electronically Signed By: Zach Parks [id number]
--- NOTE | 2017-01-01 17:49 | RADRPT ---
PROCEDURE: US left upper extremity arterial system. CLINICAL INDICATION: Left upper extremity pain and swelling. Left upper extremity dialysis fistula . TECHNIQUE: Multiple longitudinal and transverse images of the left upper extremity dialysis fistul a was obtained with madrigal scale pulsed Doppler, and color Doppler imaging. COMPARISON: None available FINDINGS: The left upper extremity dialysis fistula appears patent with normal flow throughout. There is no s tenosis or occlusion. IMPRESSION: 1. Normal left upper extremity dialysis fistula. RPTAT: QQ .Miguelito Stroud MD, MD Date Time Electronically viewed and signed by .Miguelito Stroud MD, MD on 01/01/2017 17:48 .R/
--- NOTE | 2017-01-01 18:35 | CONS ---
Date/Time of Note Date/Time of Note DATE: 01/01/17 TIME: 18:34 Assessment/Plan Assessment/Plan Chief Complaint/Hosp Course IMPRESSION: The patient has: 1. Uremia. 2. End-stage renal disease. 3. Hypertension. 4. Diabetes mellitus. 5. Atherosclerotic heart disease. 6. Dyslipidemia. 7. Diabetic nephropathy, retinopathy and neuropathy. 8. Hyperkalemia. 9. Leukocytosis. 10. Anemia. 11. History of arteriovenous fistula placement, left upper extremity. PLAN HD AM Problems: Consultation Date/Type/Reason Admit Date/Time Dec 31, 2016 at 04:31 Initial Consult Date Type of Consultation: RENAL 24 HR Interval Summary Constitutional: other (WEAKNESS+), poor po Exam/Review of Systems Vital Signs Vitals Vital Signs Date Time Temp Pulse Resp B/P Pulse Ox O2 Delivery O2 Flow Rate FiO2 01/01/17 17:19 69 01/01/17 16:21 98.4 18 144/65 97 12/31/16 06:45 Room Air 12/31/16 01:00 2.0 Intake and Output 12/31/16 12/31/16 01/01/17 15:00 23:00 07:00 Intake Total 750 ml Output Total 4500 ml Balance -3750 ml Exam Respiratory: clear to auscultation Cardiovascular: regular rate and rhythm Gastrointestinal: soft Musculoskeletal: nl extremities to inspection Extremities: normal pulses Neurological: SENIOR MANUFACTURING TEST ENGINEER II-XII intact Results Result Diagram: 01/01/17 0557 01/01/17 0557 Results 24 hrs Laboratory Tests Test 12/31/16 20:43 01/01/17 00:38 01/01/17 05:57 01/01/17 07:51 Bedside Glucose 180 141 Creatine Kinase 28 30 Creatine Kinase Index 3.8 3.4 Creatinine Kinase MB (Mass) 1.07 1.01 Troponin I < 0.012 0.016 Anion Gap 22 #H Basophils # 0.0 Basophils % 0.1 Blood Morphology Comment Blood Urea Nitrogen 77 #H Calcium Level 8.1 L Carbon Dioxide Level 26 Chloride Level 97 Cholesterol Level 180 Cholesterol/HDL Ratio 2.4 Creatinine 6.16 #H Eosinophils # 0.2 Eosinophils % 3.6 Glucose Level 184 HDL Cholesterol 74 Hematocrit 29.0 L Hemoglobin 9.7 L LDL Cholesterol, Calculated 75 Lymphocytes # 1.5 Lymphocytes % 22.7 Mean Corpuscular Hemoglobin 31.6 Mean Corpuscular Hemoglobin Concent 33.5 Mean Corpuscular Volume 94.2 Mean Platelet Volume 8.5 Monocytes # 0.5 Monocytes % 8.3 Neutrophils # 4.2 Neutrophils % 65.3 Nucleated Red Blood Cells # 0.0 Nucleated Red Blood Cells % 0.0 Platelet Count 176 Potassium Level 4.9 Red Blood Count 3.07 L Red Cell Distribution Width 17.8 H Sodium Level 140 Triglycerides Level 154 H White Blood Count 6.4 # Test 01/01/17 11:25 01/01/17 17:14 Bedside Glucose 219 235 H Medications Medications Current Medications Sodium Chloride (NS) 1,000 ml @ 40 mls/hr Q24H IV Last administered on 09:02; Admin Dose 40 MLS/HR; Start 12/31/16 at 06:04 Ondansetron HCl (Zofran Inj) 4 mg Q6H PRN IV NAUSEA AND/OR VOMITING; Start at 06:30 Nitroglycerin (Nitroglycerin (Sl Tab) 0.4 Mg) 1 tab Q5M PRN SL CHEST PAIN; Start 12/31/16 at 06:30 Acetaminophen (Tylenol Tab) 650 mg Q6H PRN PO PAIN LEVEL 1-3 OR FEVER; Start at 06:30 Acetaminophen/ Hydrocodone Bitart ([place] (5/325)) 1 tab Q6H PRN PO PAIN LEVEL 4 -6 Last administered on 01/01/17 08:31; Admin Dose 1 TAB; Start 12/31/16 at 06: 30 Docusate Sodium (Colace) 100 mg Q12H PRN PO CONSTIPATION Last administered on 20:45; Admin Dose 100 MG; Start 12/31/16 at 06:30 Heparin Sodium (Porcine) (Heparin (5000 Units/0.5 ml)) 5,000 unit Q12 SC Last administered on 01/01/17 08:12; Admin Dose 5,000 UNIT; Start 12/31/16 at 09:00 Brimonidine Tartrate ([place] P 0.1%) 1 drop BID RIGHT EYE Last administered on 01/01/17 08:08; Admin Dose 1 DROP; Start 12/31/16 at 09:00 Calcium/Vitamin D (Oyster Shell/ Vit-D (500/200)) 1 tab DAILY PO Last administered on 01/01/17 08:09; Admin Dose 1 TAB; Start 12/31/16 at 09:00 Dorzolamide/ Timolol (Cosopt) 1 drop BID BOTH EYES Last administered on 08:08; Admin Dose 1 DROP; Start 12/31/16 at 09:00 Escitalopram Oxalate (Lexapro) 10 mg QAM PO Last administered on 01/01/17 08: 09; Admin Dose 10 MG; Start 12/31/16 at 09:00 Gabapentin (Neurontin) 600 mg TID PO Last administered on 01/01/17 12:15; Admin Dose 600 MG; Start 12/31/16 at 09:00 Hydroxyzine HCl (Atarax) 50 mg Q6H PRN PO ITCHING; Start 12/31/16 at 06:30 Insulin Glargine (Lantus) 8 unit QAM SC Last administered on 01/01/17 08:12; Admin Dose 8 UNIT; Start 12/31/16 at 09:00 Multivit/Ca Carb/ B Cmplx/FA/Prenat (Kacey-Michael) 1 tab DAILY PO Last administered on 01/01/17 08:09; Admin Dose 1 TAB; Start 12/31/16 at 09:00 Oxybutynin Chloride (Ditropan) 5 mg BID PO Last administered on 01/01/17 08:09 ; Admin Dose 5 MG; Start 12/31/16 at 09:00 Polyethylene Glycol (Miralax) 17 gm DAILY PO ; Start 12/31/16 at 09:00 Memantine (Namenda) 5 mg BID PO Last administered on 01/01/17 08:09; Admin Dose 5 MG; Start 12/31/16 at 09:00 Alprazolam (Xanax) 0.5 mg TID PO Last administered on 01/01/17 12:15; Admin Dose 0.5 MG; Start 12/31/16 at 09:00 Miscellaneous Information 1 ea NOTE XX ; Start 12/31/16 at 08:00 Glucose (Glutose) 15 gm Q15M PRN PO DECREASED GLUCOSE; Start 12/31/16 at 08:00 Glucose (Glutose) 22.5 gm Q15M PRN PO DECREASED GLUCOSE; Start 12/31/16 at 08: 00 Dextrose (D50w Syringe) 25 ml Q15M PRN IV DECREASED GLUCOSE; Start 12/31/16 at 08:00 Dextrose (D50w Syringe) 50 ml Q15M PRN IV DECREASED GLUCOSE; Start 12/31/16 at 08:00 Glucagon (Glucagen) 1 mg Q15M PRN IM DECREASED GLUCOSE; Start 12/31/16 at 08:00 Glucose 15 gm 15 gm Q15M PRN BUCCAL DECREASED GLUCOSE; Start 12/31/16 at 08:00 Levofloxacin/ Dextrose (Levaquin 250 Mg/ D5W 50 ml (Pmx)) 50 ml @ 50 mls/hr Q48H IVPB ; Start 01/02/17 at 10:30 Famotidine (Pepcid Iv) 20 mg DAILY IV Last administered on 01/01/17 08:08; Admin Dose 20 MG; Start 01/01/17 at 09:00 Hydralazine HCl (Apresoline) 25 mg Q12 PO Last administered on 01/01/17 08:22 ; Admin Dose 25 MG; Start 12/31/16 at 21:00 Pregabalin (Lyrica) 75 mg BID PO ; Start 01/01/17 at 21:00 BRANDO TREVIÑO MD Jan 01, 2017 18:35
--- NOTE | 2017-01-01 19:58 | PN ---
Date/Time of Note Date/Time of Note DATE: 01/01/17 TIME: 19:55 Assessment/Plan VTE Prophylaxis VTE Prophylaxis Intervention: heparin Lines/Catheters IV Catheter Type (from Nrsg): Peripheral IV Urinary Cath still in place: No Assessment/Plan Assessment/Plan 51 yo female with a past medical history of ESRD on HD, Type II DM, Essential Hypertension, Diabetic Neuropathy, Anemia of chronic disease, Obesity, diabetic neuropathy/nephropathy, depression, who came in for generalized weakness, fall and missed dialysis. 1. Generalized weakness - multifactorial - missed dialysis/CHF exac/possible flu - improved 2. CHF exac - acute on chronic diastolic dysfunction - last EF 55% - remove fluid via dialysis 3. Leukocytosis -resolved - Cefepime/Vanc for possible HCAP, de-escalate as needed 4. ESRD on HD - s/p HD 5. Essential hypertension - continue home meds 6. Type II DM - ISS, lantus/novolog 7. Anemia of CKD - monitor H/H, transfuse as needed 8. Depression - continue with lexapro 9. Left elbow pain - xr left elbow 10. Obesity - CCD/Renal diet 11. GI ppx - pepcid 12. DVT ppx - heparin 13. Dysphagia: GI consult Subjective 24 Hr Interval Summary Free Text/Dictation multiple complaints food stuck in throat severe elbow pain dialysis graft patency Exam/Review of Systems Vital Signs Vitals Vital Signs Date Time Temp Pulse Resp B/P Pulse Ox O2 Delivery O2 Flow Rate FiO2 01/01/17 17:19 69 01/01/17 16:21 98.4 18 144/65 97 12/31/16 06:45 Room Air 12/31/16 01:00 2.0 Intake and Output 12/31/16 12/31/16 01/01/17 15:00 23:00 07:00 Intake Total 750 ml Output Total 4500 ml Balance -3750 ml Exam Gen Mellisa: mild to moderate distress 2/2 to weakness, AAOx4, obese female HEENT: NC/AT, PERRLA, EOMI, no pharyngeal erythema, no tonsillar exudates, no lymphadenopathy, no JVD, no carotid bruits NECK: supple, no thyromegaly THORAX: symmetrical, no obvious deformities CV: S1S2, RRR, no M/G/R Lungs: diminished breath sounds to the bases bilaterally, no overt wheezing, bibasilar crackles Abd: soft, NT/ND, +BS, no rebound, no guarding, neg HSM, protuberant EXT: no edema, no ecchymosis, no clubbing, left upper extremity fistula patent - bruit, pain with movement Neuro: CN II-XII grossly intact, no focal deficits Psych: fair mood and affect Skin: C/D/I Results Result Diagram: 01/01/17 0557 01/01/17 0557 Results 24 hrs Laboratory Tests Test 12/31/16 20:43 01/01/17 00:38 01/01/17 05:57 01/01/17 07:51 Bedside Glucose 180 141 Creatine Kinase 28 30 Creatine Kinase Index 3.8 3.4 Creatinine Kinase MB (Mass) 1.07 1.01 Troponin I < 0.012 0.016 Anion Gap 22 #H Basophils # 0.0 Basophils % 0.1 Blood Morphology Comment Blood Urea Nitrogen 77 #H Calcium Level 8.1 L Carbon Dioxide Level 26 Chloride Level 97 Cholesterol Level 180 Cholesterol/HDL Ratio 2.4 Creatinine 6.16 #H Eosinophils # 0.2 Eosinophils % 3.6 Glucose Level 184 HDL Cholesterol 74 Hematocrit 29.0 L Hemoglobin 9.7 L LDL Cholesterol, Calculated 75 Lymphocytes # 1.5 Lymphocytes % 22.7 Mean Corpuscular Hemoglobin 31.6 Mean Corpuscular Hemoglobin Concent 33.5 Mean Corpuscular Volume 94.2 Mean Platelet Volume 8.5 Monocytes # 0.5 Monocytes % 8.3 Neutrophils # 4.2 Neutrophils % 65.3 Nucleated Red Blood Cells # 0.0 Nucleated Red Blood Cells % 0.0 Platelet Count 176 Potassium Level 4.9 Red Blood Count 3.07 L Red Cell Distribution Width 17.8 H Sodium Level 140 Triglycerides Level 154 H White Blood Count 6.4 # Test 01/01/17 11:25 01/01/17 17:14 Bedside Glucose 219 235 H Medications Medications Current Medications Sodium Chloride (NS) 1,000 ml @ 40 mls/hr Q24H IV Last administered on t 09:02; Admin Dose 40 MLS/HR; Start 12/31/16 at 06:04 Ondansetron HCl (Zofran Inj) 4 mg Q6H PRN IV NAUSEA AND/OR VOMITING; Start at 06:30 Nitroglycerin (Nitroglycerin (Sl Tab) 0.4 Mg) 1 tab Q5M PRN SL CHEST PAIN; Start 12/31/16 at 06:30 Acetaminophen (Tylenol Tab) 650 mg Q6H PRN PO PAIN LEVEL 1-3 OR FEVER; Start at 06:30 Acetaminophen/ Hydrocodone Bitart ([place] (5/325)) 1 tab Q6H PRN PO PAIN LEVEL 4 -6 Last administered on 01/01/17 08:31; Admin Dose 1 TAB; Start 12/31/16 at 06: 30 Docusate Sodium (Colace) 100 mg Q12H PRN PO CONSTIPATION Last administered on 20:45; Admin Dose 100 MG; Start 12/31/16 at 06:30 Heparin Sodium (Porcine) (Heparin (5000 Units/0.5 ml)) 5,000 unit Q12 SC Last administered on 01/01/17 08:12; Admin Dose 5,000 UNIT; Start 12/31/16 at 09:00 Brimonidine Tartrate (Alphagan P 0.1%) 1 drop BID RIGHT EYE Last administered on 01/01/17 08:08; Admin Dose 1 DROP; Start 12/31/16 at 09:00 Calcium/Vitamin D (Oyster Shell/ Vit-D (500/200)) 1 tab DAILY PO Last administered on 01/01/17 08:09; Admin Dose 1 TAB; Start 12/31/16 at 09:00 Dorzolamide/ Timolol (Cosopt) 1 drop BID BOTH EYES Last administered on 08:08; Admin Dose 1 DROP; Start 12/31/16 at 09:00 Escitalopram Oxalate (Lexapro) 10 mg QAM PO Last administered on 01/01/17 08: 09; Admin Dose 10 MG; Start 12/31/16 at 09:00 Gabapentin (Neurontin) 600 mg TID PO Last administered on 01/01/17 12:15; Admin Dose 600 MG; Start 12/31/16 at 09:00 Hydroxyzine HCl (Atarax) 50 mg Q6H PRN PO ITCHING; Start 12/31/16 at 06:30 Insulin Glargine (Lantus) 8 unit QAM SC Last administered on 01/01/17 08:12; Admin Dose 8 UNIT; Start 12/31/16 at 09:00 Multivit/Ca Carb/ B Cmplx/FA/Prenat (Kacey-Michael) 1 tab DAILY PO Last administered on 01/01/17 08:09; Admin Dose 1 TAB; Start 12/31/16 at 09:00 Oxybutynin Chloride (Ditropan) 5 mg BID PO Last administered on 01/01/17 08:09 ; Admin Dose 5 MG; Start 12/31/16 at 09:00 Polyethylene Glycol (Miralax) 17 gm DAILY PO ; Start 12/31/16 at 09:00 Memantine (Namenda) 5 mg BID PO Last administered on 01/01/17 08:09; Admin Dose 5 MG; Start 12/31/16 at 09:00 Alprazolam (Xanax) 0.5 mg TID PO Last administered on 01/01/17 12:15; Admin Dose 0.5 MG; Start 12/31/16 at 09:00 Miscellaneous Information 1 ea NOTE XX ; Start 12/31/16 at 08:00 Glucose (Glutose) 15 gm Q15M PRN PO DECREASED GLUCOSE; Start 12/31/16 at 08:00 Glucose (Glutose) 22.5 gm Q15M PRN PO DECREASED GLUCOSE; Start 12/31/16 at 08: 00 Dextrose (D50w Syringe) 25 ml Q15M PRN IV DECREASED GLUCOSE; Start 12/31/16 at 08:00 Dextrose (D50w Syringe) 50 ml Q15M PRN IV DECREASED GLUCOSE; Start 12/31/16 at 08:00 Glucagon (Glucagen) 1 mg Q15M PRN IM DECREASED GLUCOSE; Start 12/31/16 at 08:00 Glucose 15 gm 15 gm Q15M PRN BUCCAL DECREASED GLUCOSE; Start 12/31/16 at 08:00 Levofloxacin/ Dextrose (Levaquin 250 Mg/ D5W 50 ml (Pmx)) 50 ml @ 50 mls/hr Q48H IVPB ; Start 01/02/17 at 10:30 Famotidine (Pepcid Iv) 20 mg DAILY IV Last administered on 01/01/17 08:08; Admin Dose 20 MG; Start 01/01/17 at 09:00 Hydralazine HCl (Apresoline) 25 mg Q12 PO Last administered on 01/01/17 08:22 ; Admin Dose 25 MG; Start 12/31/16 at 21:00 Pregabalin (Lyrica) 75 mg BID PO ; Start 01/01/17 at 21:00 STACIE TURNER Jan 01, 2017 19:58
--- NOTE | 2017-01-01 20:54 | RADRPT ---
PROCEDURE: XR Elbow. CLINICAL INDICATION: Severe left elbow pain TECHNIQUE: AP, lateral and oblique views of the left elbow performed. COMPARISON: None. FINDINGS: There is normal mineralization and alignment. No fracture or osseous lesion is identified. The dista l humerus, proximal radius and proximal ulna are unremarkable, and the joint spaces are preserved. S oft tissue swelling is present and there are multiple vascular clips along the arm and proximal medi al forearm. There is no evidence of a joint effusion. RPTAT:HJJR IMPRESSION: Soft tissue swelling and vascular clips consistent with prior surgery without acute osseous abnormal ity of the left elbow. Physician Hemanth Date Time Electronically viewed and signed by Physician Hemanth on 01/01/2017 20:53 JR/
[2017-01-01] MEDS: PREGABALIN 75 MG CAP PO SCH (21:36)
[2017-01-02] VITALS (19 sets, daily range): BP systolic 117–149; BP diastolic 56–84; PULSE 61–88; RESP 18–20
[2017-01-02 07:31] LABS: ALBUMIN 3.7 g/dl (3.3-4.9); POTASSIUM 5.1 mmol/L (3.5-5.1)
[2017-01-02 07:33] LABS: CREATININE 6.72 mg/dl (0.44-1.00)
[2017-01-02 07:34] LABS: ALBUMIN/GLOBULIN RATIO 1.08; CALCIUM 7.9 mg/dl (8.4-10.2); TOTAL PROTEIN 7.1 g/dl (6.1-8.1)
[2017-01-02] MEDS: INSULIN ASPART [NOVOLOG] 3 ML PEN SC SCH ×4 (08:00→22:24)
[2017-01-02 08:02] LABS: BASOPHILS % 0.3 % (0.0-2.0); EOSINOPHILS # 0.3 10^3/ul (0.0-0.5); EOSINOPHILS % 3.9 % (0.0-7.0); HEMATOCRIT 29.4 % (37.0-47.0); HEMOGLOBIN 9.1 g/dl (12.0-16.0); LYMPHOCYTES # 1.8 10^3/ul (0.8-2.9); LYMPHOCYTES % 27.6 % (15.0-51.0); MEAN CORPUSCULAR HEMOGLOBIN 30.6 pg (29.0-33.0); MEAN PLATELET VOLUME 10.3 fl (7.4-10.4); MONOCYTE # 0.6 10^3/ul (0.3-0.9); MONOCYTES % 8.9 % (0.0-11.0); NEUTROPHIL # 3.9 10^3/ul (1.6-7.5); NEUTROPHILS % 58.5 % (39.0-77.0); PLATELET COUNT 176 10^3/UL (140-415); RED BLOOD COUNT 2.97 10^6/ul (4.20-5.40); RED CELL DISTRIBUTION WIDTH 16.2 % (11.5-14.5); WHITE BLOOD COUNT 6.6 10^3/ul (4.8-10.8)
[2017-01-02] MEDS: SOD CHLORIDE 0.9% 1,000 ML IV SCH (08:12)
[2017-01-02] MEDS ORDERED: DIATR MEGLU/DIATRIZOATE SODIUM 120 ML BTL ONE ×2 (08:29→08:47)
[2017-01-02] MEDS ORDERED: BARIUM SULFATE 135 ML (E-Z HD) PO ONE (08:57)
[2017-01-02] MEDS: FAMOTIDINE 20 MG INJ IV SCH (10:10)
[2017-01-02] MEDS: DORZOLAMIDE/TIMOLOL 10 ML OPH BOTH EYES SCH ×2 (10:10→22:14)
[2017-01-02] MEDS: HEPARIN 5,000 UNIT/0.5 ML SYG SC SCH ×2 (10:11→22:18)
[2017-01-02] MEDS: INSULIN GLARGINE [LANtus] 3 ML PEN SC SCH (10:24)
[2017-01-02] MEDS ORDERED: LEVOFLOXACIN 250MG/D5W (PMX) 50 ML IVPB SCH (10:30)
--- NOTE | 2017-01-02 10:48 | PN ---
Date/Time of Note Date/Time of Note DATE: 01/02/17 TIME: 10:39 Assessment/Plan VTE Prophylaxis VTE Prophylaxis Intervention: other (per ortho, ASA) Lines/Catheters IV Catheter Type (from Nrsg): Peripheral IV Urinary Cath still in place: No Assessment/Plan Assessment/Plan 51 yo female with a past medical history of ESRD on HD, Type II DM, Essential Hypertension, Diabetic Neuropathy, Anemia of chronic disease, Obesity, diabetic neuropathy/nephropathy, depression, who came in for generalized weakness, fall and missed dialysis. 1. Generalized weakness - multifactorial - Improved 2. CHF exac - acute on chronic diastolic dysfunction - last EF 55% - improved 3. Leukocytosis -resolved 4. ESRD on HD 5. Essential hypertension - controlled 6. Type II DM - good control 7. Anemia of CKD - stable 8. Depression - Stable 9. Left elbow pain - likely ALFREDO / Neuropathic 10. Obesity - CCD/Renal diet 11. Dysphagia: s/p barium swallow 12. Generalized neuropathy 13. R flank tenderness r/o Pyelonephritis 14. 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 Debility s/p multiple falls PLAN: * F/u barium swallow / possible EGD friday per GI if abnormal * Continue Lyrica for neuropathic pain * Continue Routine HD to help with diuresis * F/u urine and blood cultures * Continue current regimen / abx modification per ID * Possible D/c today with HHPT on oral abx if barium swallow is negative. PROPHYLAXIS: Pepcid / Heparin Subjective 24 Hr Interval Summary Constitutional: improved Exam/Review of Systems Vital Signs Vitals Vital Signs Date Time Temp Pulse Resp B/P Pulse Ox O2 Delivery O2 Flow Rate FiO2 01/02/17 08:21 65 01/02/17 07:20 97.6 19 136/65 100 12/31/16 06:45 Room Air 12/31/16 01:00 2.0 Intake and Output 01/01/17 01/01/17 01/02/17 15:00 23:00 07:00 Intake Total 450 ml Balance 450 ml Exam Constitutional: alert, obese, oriented Psych: nl mood/affect Head: atraumatic, normocephalic ENMT: mucosa pink and moist Neck: supple Respiratory: clear to auscultation, diminished breath sounds Cardiovascular: regular rate and rhythm, No murmurs/extra sounds Gastrointestinal: bowel sounds, other (hernia), soft Extremities: No edema Neurological: nl mental status, No focal weakness Results Result Diagram: 01/02/17 0546 01/02/17 0546 Results 24 hrs Laboratory Tests Test 01/01/17 11:25 01/01/17 17:14 01/01/17 21:33 01/02/17 05:46 Bedside Glucose 219 235 H 89 Alanine Aminotransferase (ALT/SGPT) 33 Albumin 3.7 Albumin/Globulin Ratio 1.08 Alkaline Phosphatase 239 H Anion Gap 21 H Aspartate Amino Transf (AST/SGOT) 27 Basophils # 0.0 Basophils % 0.3 Blood Urea Nitrogen 88 H Calcium Level 7.9 L Carbon Dioxide Level 24 Chloride Level 100 Creatinine 6.72 H Direct Bilirubin 0.00 Eosinophils # 0.3 Eosinophils % 3.9 Globulin 3.40 H Glucose Level 96 # Hematocrit 29.4 L Hemoglobin 9.1 L Indirect Bilirubin 0.0 Lymphocytes # 1.8 Lymphocytes % 27.6 Mean Corpuscular Hemoglobin 30.6 Mean Corpuscular Hemoglobin Concent 31.0 L Mean Corpuscular Volume 99.0 Mean Platelet Volume 10.3 # Monocytes # 0.6 Monocytes % 8.9 Neutrophils # 3.9 Neutrophils % 58.5 Nucleated Red Blood Cells # 0.0 Nucleated Red Blood Cells % 0.0 Platelet Count 176 Potassium Level 5.1 Red Blood Count 2.97 L Red Cell Distribution Width 16.2 H Sodium Level 140 Total Bilirubin 0.0 L Total Protein 7.1 White Blood Count 6.6 Test 01/02/17 08:10 Bedside Glucose 93 Medications Medications Current Medications Sodium Chloride (NS) 1,000 ml @ 40 mls/hr Q24H IV Last administered on t 09:02; Admin Dose 40 MLS/HR; Start 12/31/16 at 06:04 Ondansetron HCl (Zofran Inj) 4 mg Q6H PRN IV NAUSEA AND/OR VOMITING; Start at 06:30 Nitroglycerin (Nitroglycerin (Sl Tab) 0.4 Mg) 1 tab Q5M PRN SL CHEST PAIN; Start 12/31/16 at 06:30 Acetaminophen (Tylenol Tab) 650 mg Q6H PRN PO PAIN LEVEL 1-3 OR FEVER; Start at 06:30 Acetaminophen/ Hydrocodone Bitart ([place] (5/325)) 1 tab Q6H PRN PO PAIN LEVEL 4 -6 Last administered on 01/01/17 08:31; Admin Dose 1 TAB; Start 12/31/16 at 06: 30 Docusate Sodium (Colace) 100 mg Q12H PRN PO CONSTIPATION Last administered on 20:45; Admin Dose 100 MG; Start 12/31/16 at 06:30 Heparin Sodium (Porcine) (Heparin (5000 Units/0.5 ml)) 5,000 unit Q12 SC Last administered on 01/02/17 10:11; Admin Dose 5,000 UNIT; Start 12/31/16 at 09:00 Brimonidine Tartrate (Alphagan P 0.1%) 1 drop BID RIGHT EYE Last administered on 01/01/17 21:36; Admin Dose 1 DROP; Start 12/31/16 at 09:00 Calcium/Vitamin D (Oyster Shell/ Vit-D (500/200)) 1 tab DAILY PO Last administered on 01/01/17 08:09; Admin Dose 1 TAB; Start 12/31/16 at 09:00 Dorzolamide/ Timolol (Cosopt) 1 drop BID BOTH EYES Last administered on 10:10; Admin Dose 1 DROP; Start 12/31/16 at 09:00 Escitalopram Oxalate (Lexapro) 10 mg QAM PO Last administered on 01/01/17 08: 09; Admin Dose 10 MG; Start 12/31/16 at 09:00 Gabapentin (Neurontin) 600 mg TID PO Last administered on 01/01/17 21:38; Admin Dose 600 MG; Start 12/31/16 at 09:00 Hydroxyzine HCl (Atarax) 50 mg Q6H PRN PO ITCHING; Start 12/31/16 at 06:30 Insulin Glargine (Lantus) 8 unit QAM SC Last administered on 01/02/17 10:24; Admin Dose 8 UNIT; Start 12/31/16 at 09:00 Multivit/Ca Carb/ B Cmplx/FA/Prenat (Kacye-Michael) 1 tab DAILY PO Last administered on 01/01/17 08:09; Admin Dose 1 TAB; Start 12/31/16 at 09:00 Oxybutynin Chloride (Ditropan) 5 mg BID PO Last administered on 01/01/17 21:36 ; Admin Dose 5 MG; Start 12/31/16 at 09:00 Polyethylene Glycol (Miralax) 17 gm DAILY PO ; Start 12/31/16 at 09:00 Memantine (Namenda) 5 mg BID PO Last administered on 01/01/17 21:38; Admin Dose 5 MG; Start 12/31/16 at 09:00 Alprazolam (Xanax) 0.5 mg TID PO Last administered on 01/01/17 21:36; Admin Dose 0.5 MG; Start 12/31/16 at 09:00 Miscellaneous Information 1 ea NOTE XX ; Start 12/31/16 at 08:00 Glucose (Glutose) 15 gm Q15M PRN PO DECREASED GLUCOSE; Start 12/31/16 at 08:00 Glucose (Glutose) 22.5 gm Q15M PRN PO DECREASED GLUCOSE; Start 12/31/16 at 08: 00 Dextrose (D50w Syringe) 25 ml Q15M PRN IV DECREASED GLUCOSE; Start 12/31/16 at 08:00 Dextrose (D50w Syringe) 50 ml Q15M PRN IV DECREASED GLUCOSE; Start 12/31/16 at 08:00 Glucagon (Glucagen) 1 mg Q15M PRN IM DECREASED GLUCOSE; Start 12/31/16 at 08:00 Glucose 15 gm 15 gm Q15M PRN BUCCAL DECREASED GLUCOSE; Start 12/31/16 at 08:00 Levofloxacin/ Dextrose (Levaquin 250 Mg/ D5W 50 ml (Pmx)) 50 ml @ 50 mls/hr Q48H IVPB ; Start 01/02/17 at 10:30 Famotidine (Pepcid Iv) 20 mg DAILY IV Last administered on 01/02/17 10:10; Admin Dose 20 MG; Start 01/01/17 at 09:00 Hydralazine HCl (Apresoline) 25 mg Q12 PO Last administered on 01/01/17 21:38 ; Admin Dose 25 MG; Start 12/31/16 at 21:00 Pregabalin (Lyrica) 75 mg BID PO Last administered on 01/01/17 21:36; Admin Dose 75 MG; Start 01/01/17 at 21:00 STACIE TURNER Jan 02, 2017 10:48
[2017-01-02] MEDS: ALPRAZOLAM 0.25 MG TAB PO SCH ×3 (10:53→22:16)
[2017-01-02] MEDS: BRIMONIDINE 0.1% 5 ML OPH RIGHT EYE SCH ×2 (10:53→22:14)
[2017-01-02] MEDS: PREGABALIN 75 MG CAP PO SCH ×2 (10:54→22:16)
[2017-01-02] MEDS: GABAPENTIN 300 MG CAP PO SCH ×3 (10:54→22:16)
[2017-01-02] MEDS: MULTIVIT/CA CARB/B CMPLX/FA TAB PO SCH (10:54)
[2017-01-02] MEDS: CALCIUM/VITAMIN D (500/200) TAB PO SCH (10:54)
[2017-01-02] MEDS: ESCITALOPRAM 10 MG TAB PO SCH (10:54)
[2017-01-02] MEDS: OXYBUTYNIN 5 MG TAB PO SCH ×2 (10:54→22:16)
[2017-01-02] MEDS: POLYETHYLENE GLYCOL 17 GM PACKET PO SCH (10:55)
[2017-01-02] MEDS: MEMANTINE 5 MG TAB PO SCH ×2 (10:55→22:14)
--- NOTE | 2017-01-02 15:03 | RADRPT ---
PROCEDURE: Barium swallow. CLINICAL INDICATION: Dysphasia. TECHNIQUE: Barium was administered orally and several spot and overhead radiographs were obtained. 0.2 minutes of fluoroscopy time was used. COMPARISON: No prior study is available for comparison. FINDINGS: There is no aspiration. There is a cricopharyngeal bar noted during swallowing. Esophageal motility is normal. There is no stricture. There is no mass. There is no ulcer. There is no gastroesophageal reflux. IMPRESSION: 1. Cricopharyngeal bar, due to prominent cricopharyngeus muscle. 2. Otherwise unremarkable esophagogram. RPTAT: QQ .Miguelito Stroud MD, MD Date Time Electronically viewed and signed by .Miguelito Stroud MD, on 01/02/2017 15:03 .R/
--- NOTE | 2017-01-02 16:23 | CONS ---
Date/Time of Note Date/Time of Note DATE: 01/02/17 TIME: 16:15 Assessment/Plan Assessment/Plan Chief Complaint/Hosp Course 51 YO obese F reports issues with swallowing for the last 2 months. Patient reports intermittent vomiting secondary to feeling that food is lodged at the bottom of her throat. 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 Patient states that tumor was preventing p.o. intake and she had a G-tube placed secondary to dysphagia. Patient states that the tumor resolved on its own without any type of treatment. She states that one day she was vomiting and tumor dislodged and was in emesis. Patient states she was previously treated at [facility] for esophageal tumor. Patient patient denies fever, chills, melena stools, and diarrhea. Patient reports intermittent epigastric pain but unsure of onset. Patient seems to have a constellation of symptoms and may be secondary to underlying mental health disorder. Patient also reports history of lymphoma that was diagnosed 2 years ago but unable to provide name of oncologist in her care. Patient reports completing 4 rounds of chemotherapy 2 years ago and does not recall any recent outpatient follow-up. Patient also has PMH of SRD on HD, Type II DM, Essential Hypertension, Diabetic Neuropathy, Anemia of chronic disease, Obesity, diabetic neuropathy/nephropathy , and depression. Problems: Additional Assessment/Plan Dysphagia * Passed swallow evaluation * Esophagram with Gastrografin does not note any mass or stricture * Advance diet diet * EGD not clinically indicated CHF/HTN * Cardiology following ESRD * on HD Type II DM Anemia * Likely secondary to CKD Obesity Further recommendations pending clinical course Patient seen in collaboration with Dr. Lu Consultation Date/Type/Reason Admit Date/Time Dec 31, 2016 at 04:31 Initial Consult Date Type of Consultation: GI 24 HR Interval Summary Free Text/Dictation Normal esophagram At bedside patient is tolerating clear and soft diet Hemoglobin stable Exam/Review of Systems Vital Signs Vitals Vital Signs Date Time Temp Pulse Resp B/P Pulse Ox O2 Delivery O2 Flow Rate FiO2 01/02/17 16:08 68 01/02/17 15:00 98.0 20 149/65 93 12/31/16 06:45 Room Air 12/31/16 01:00 2.0 Intake and Output 01/01/17 01/01/17 01/02/17 15:00 23:00 07:00 Intake Total 450 ml Balance 450 ml Exam Constitutional: alert, obese, oriented, well developed Psych: nl mood/affect Head: atraumatic Eyes: EOMI, nl conjunctiva, nl lids ENMT: nl external ears & nose Neck: non-tender Respiratory: normal air movement Cardiovascular: regular rate and rhythm Gastrointestinal: soft, non tender Musculoskeletal: nl extremities to inspection Neurological: MEDART OPERATOR II-XII intact Results Result Diagram: 01/02/17 0546 01/02/17 0546 Results 24 hrs Laboratory Tests Test 01/01/17 17:14 01/01/17 21:33 01/02/17 05:46 01/02/17 08:10 Bedside Glucose 235 H 89 93 Alanine Aminotransferase (ALT/SGPT) 33 Albumin 3.7 Albumin/Globulin Ratio 1.08 Alkaline Phosphatase 239 H Anion Gap 21 H Aspartate Amino Transf (AST/SGOT) 27 Basophils # 0.0 Basophils % 0.3 Blood Urea Nitrogen 88 H Calcium Level 7.9 L Carbon Dioxide Level 24 Chloride Level 100 Creatinine 6.72 H Direct Bilirubin 0.00 Eosinophils # 0.3 Eosinophils % 3.9 Globulin 3.40 H Glucose Level 96 # Hematocrit 29.4 L Hemoglobin 9.1 L Indirect Bilirubin 0.0 Lymphocytes # 1.8 Lymphocytes % 27.6 Mean Corpuscular Hemoglobin 30.6 Mean Corpuscular Hemoglobin Concent 31.0 L Mean Corpuscular Volume 99.0 Mean Platelet Volume 10.3 # Monocytes # 0.6 Monocytes % 8.9 Neutrophils # 3.9 Neutrophils % 58.5 Nucleated Red Blood Cells # 0.0 Nucleated Red Blood Cells % 0.0 Platelet Count 176 Potassium Level 5.1 Red Blood Count 2.97 L Red Cell Distribution Width 16.2 H Sodium Level 140 Total Bilirubin 0.0 L Total Protein 7.1 White Blood Count 6.6 Test 01/02/17 11:40 Bedside Glucose 101 Medications Medications Current Medications Sodium Chloride (NS) 1,000 ml @ 40 mls/hr Q24H IV Last administered on t 09:02; Admin Dose 40 MLS/HR; Start 12/31/16 at 06:04 Ondansetron HCl (Zofran Inj) 4 mg Q6H PRN IV NAUSEA AND/OR VOMITING; Start at 06:30 Nitroglycerin (Nitroglycerin (Sl Tab) 0.4 Mg) 1 tab Q5M PRN SL CHEST PAIN; Start 12/31/16 at 06:30 Acetaminophen (Tylenol Tab) 650 mg Q6H PRN PO PAIN LEVEL 1-3 OR FEVER; Start at 06:30 Acetaminophen/ Hydrocodone Bitart ([place] (5/325)) 1 tab Q6H PRN PO PAIN LEVEL 4 -6 Last administered on 01/01/17 08:31; Admin Dose 1 TAB; Start 12/31/16 at 06: 30 Docusate Sodium (Colace) 100 mg Q12H PRN PO CONSTIPATION Last administered on 20:45; Admin Dose 100 MG; Start 12/31/16 at 06:30 Heparin Sodium (Porcine) (Heparin (5000 Units/0.5 ml)) 5,000 unit Q12 SC Last administered on 01/02/17 10:11; Admin Dose 5,000 UNIT; Start 12/31/16 at 09:00 Brimonidine Tartrate (Alphagan P 0.1%) 1 drop BID RIGHT EYE Last administered on 01/02/17 10:53; Admin Dose 1 DROP; Start 12/31/16 at 09:00 Calcium/Vitamin D (Oyster Shell/ Vit-D (500/200)) 1 tab DAILY PO Last administered on 01/02/17 10:54; Admin Dose 1 TAB; Start 12/31/16 at 09:00 Dorzolamide/ Timolol (Cosopt) 1 drop BID BOTH EYES Last administered on 10:10; Admin Dose 1 DROP; Start 12/31/16 at 09:00 Escitalopram Oxalate (Lexapro) 10 mg QAM PO Last administered on 01/02/17 10: 54; Admin Dose 10 MG; Start 12/31/16 at 09:00 Gabapentin (Neurontin) 600 mg TID PO Last administered on 01/02/17 15:52; Admin Dose 600 MG; Start 12/31/16 at 09:00 Hydroxyzine HCl (Atarax) 50 mg Q6H PRN PO ITCHING; Start 12/31/16 at 06:30 Insulin Glargine (Lantus) 8 unit QAM SC Last administered on 01/02/17 10:24; Admin Dose 8 UNIT; Start 12/31/16 at 09:00 Multivit/Ca Carb/ B Cmplx/FA/Prenat (Kacey-Michael) 1 tab DAILY PO Last administered on 01/02/17 10:54; Admin Dose 1 TAB; Start 12/31/16 at 09:00 Oxybutynin Chloride (Ditropan) 5 mg BID PO Last administered on 01/02/17 10:54 ; Admin Dose 5 MG; Start 12/31/16 at 09:00 Polyethylene Glycol (Miralax) 17 gm DAILY PO Last administered on 01/02/17 10: 55; Admin Dose 17 GM; Start 12/31/16 at 09:00 Memantine (Namenda) 5 mg BID PO Last administered on 01/02/17 10:55; Admin Dose 5 MG; Start 12/31/16 at 09:00 Alprazolam (Xanax) 0.5 mg TID PO Last administered on 01/02/17 15:52; Admin Dose 0.5 MG; Start 12/31/16 at 09:00 Miscellaneous Information 1 ea NOTE XX ; Start 12/31/16 at 08:00 Glucose (Glutose) 15 gm Q15M PRN PO DECREASED GLUCOSE; Start 12/31/16 at 08:00 Glucose (Glutose) 22.5 gm Q15M PRN PO DECREASED GLUCOSE; Start 12/31/16 at 08: 00 Dextrose (D50w Syringe) 25 ml Q15M PRN IV DECREASED GLUCOSE; Start 12/31/16 at 08:00 Dextrose (D50w Syringe) 50 ml Q15M PRN IV DECREASED GLUCOSE; Start 12/31/16 at 08:00 Glucagon (Glucagen) 1 mg Q15M PRN IM DECREASED GLUCOSE; Start 12/31/16 at 08:00 Glucose (Glutose) 15 gm Q15M PRN BUCCAL DECREASED GLUCOSE; Start 12/31/16 at 08 :00 Famotidine (Pepcid Iv) 20 mg DAILY IV Last administered on 01/02/17 10:10; Admin Dose 20 MG; Start 01/01/17 at 09:00 Hydralazine HCl (Apresoline) 25 mg Q12 PO Last administered on 01/01/17 21:38 ; Admin Dose 25 MG; Start 12/31/16 at 21:00 Pregabalin (Lyrica) 75 mg BID PO Last administered on 01/02/17t 10:54; Admin Dose 75 MG; Start 01/01/17 at 21:00 Levofloxacin (Levaquin) 250 mg Q48H PO ; Start 01/04/17 at 13:30 TWAN LUDWIG Jan 02, 2017 16:23
--- NOTE | 2017-01-02 18:49 | CONS ---
Date/Time of Note Date/Time of Note DATE: 01/02/17 TIME: 18:39 Assessment/Plan Assessment/Plan Chief Complaint/Hosp Course IMPRESSION: 1. Abnormal electrocardiogram, assess for acute coronary syndrome.-troponin neg x 3/NL EF by echo this admit EF 55% 2. Shortness of breath, assess for congestive heart failure. 3. Increased BNP, assess for congestive heart failure. 4. Hypertension, currently under reasonable control. 5. End-stage renal disease on hemodialysis. 6. Diabetes mellitus. 7. Psychiatric disorder. 8. Hyperkalemia. Recc: -Tele -Increase hydralazine and f/u BP -HD for volume removal -Continue abx's and f/u cx data -Check fasting lipid panel Problems: Consultation Date/Type/Reason Admit Date/Time Dec 31, 2016 at 04:31 Initial Consult Date 12/31/2016 Type of Consultation: Cardiology Reason for Consultation abnl ecg Referring Provider: STACIE TURNER Exam/Review of Systems Vital Signs Vitals Vital Signs Date Time Temp Pulse Resp B/P Pulse Ox O2 Delivery O2 Flow Rate FiO2 01/02/17 16:17 73 01/02/17 15:00 98.0 20 149/65 93 12/31/16 06:45 Room Air 12/31/16 01:00 2.0 Intake and Output 01/01/17 01/01/17 01/02/17 15:00 23:00 07:00 Intake Total 450 ml Balance 450 ml Exam Review of Systems: CONSTITUTIONAL: No fevers, chills. PULMONARY: No sob CARDIOVASCULAR: No chest pain/palpitations GASTROINTESTINAL: No nausea/vomiting. GENITOURINARY: No hematuria/dysuria. MUSCULOSKELETAL: No myagias/arthalgias. PSYCHIATRIC: The patient denies depression. NEUROLOGIC: No weakness Constitutional: alert Head: normocephalic ENMT: mucosa pink and moist Neck: jvd (9 cm water), supple Respiratory: diminished breath sounds Cardiovascular: regular rate and rhythm Gastrointestinal: non-tender, soft Musculoskeletal: muscle tone (normal) Extremities: edema (none) Neurological: other (No focal deficits) Results Result Diagram: 01/02/17 0546 01/02/17 0546 Results 24 hrs Laboratory Tests Test 01/01/17 21:33 01/02/17 05:46 01/02/17 08:10 01/02/17 11:40 Bedside Glucose 89 93 101 Alanine Aminotransferase (ALT/SGPT) 33 Albumin 3.7 Albumin/Globulin Ratio 1.08 Alkaline Phosphatase 239 H Anion Gap 21 H Aspartate Amino Transf (AST/SGOT) 27 Basophils # 0.0 Basophils % 0.3 Blood Urea Nitrogen 88 H Calcium Level 7.9 L Carbon Dioxide Level 24 Chloride Level 100 Creatinine 6.72 H Direct Bilirubin 0.00 Eosinophils # 0.3 Eosinophils % 3.9 Globulin 3.40 H Glucose Level 96 # Hematocrit 29.4 L Hemoglobin 9.1 L Indirect Bilirubin 0.0 Lymphocytes # 1.8 Lymphocytes % 27.6 Mean Corpuscular Hemoglobin 30.6 Mean Corpuscular Hemoglobin Concent 31.0 L Mean Corpuscular Volume 99.0 Mean Platelet Volume 10.3 # Monocytes # 0.6 Monocytes % 8.9 Neutrophils # 3.9 Neutrophils % 58.5 Nucleated Red Blood Cells # 0.0 Nucleated Red Blood Cells % 0.0 Platelet Count 176 Potassium Level 5.1 Red Blood Count 2.97 L Red Cell Distribution Width 16.2 H Sodium Level 140 Total Bilirubin 0.0 L Total Protein 7.1 White Blood Count 6.6 Test 01/02/17 17:16 Bedside Glucose 209 Medications Medications Current Medications Sodium Chloride (NS) 1,000 ml @ 40 mls/hr Q24H IV Last administered on 09:02; Admin Dose 40 MLS/HR; Start 12/31/16 at 06:04 Ondansetron HCl (Zofran Inj) 4 mg Q6H PRN IV NAUSEA AND/OR VOMITING; Start at 06:30 Nitroglycerin (Nitroglycerin (Sl Tab) 0.4 Mg) 1 tab Q5M PRN SL CHEST PAIN; Start 12/31/16 at 06:30 Acetaminophen (Tylenol Tab) 650 mg Q6H PRN PO PAIN LEVEL 1-3 OR FEVER; Start at 06:30 Acetaminophen/ Hydrocodone Bitart ([place] (5/325)) 1 tab Q6H PRN PO PAIN LEVEL 4 -6 Last administered on 01/01/17 08:31; Admin Dose 1 TAB; Start 12/31/16 at 06: 30 Docusate Sodium (Colace) 100 mg Q12H PRN PO CONSTIPATION Last administered on 20:45; Admin Dose 100 MG; Start 12/31/16 at 06:30 Heparin Sodium (Porcine) (Heparin (5000 Units/0.5 ml)) 5,000 unit Q12 SC Last administered on 01/02/17 10:11; Admin Dose 5,000 UNIT; Start 12/31/16 at 09:00 Brimonidine Tartrate (Alphagan P 0.1%) 1 drop BID RIGHT EYE Last administered on 01/02/17 10:53; Admin Dose 1 DROP; Start 12/31/16 at 09:00 Calcium/Vitamin D (Oyster Shell/ Vit-D (500/200)) 1 tab DAILY PO Last administered on 01/02/17 10:54; Admin Dose 1 TAB; Start 12/31/16 at 09:00 Dorzolamide/ Timolol (Cosopt) 1 drop BID BOTH EYES Last administered on 10:10; Admin Dose 1 DROP; Start 12/31/16 at 09:00 Escitalopram Oxalate (Lexapro) 10 mg QAM PO Last administered on 01/02/17 10: 54; Admin Dose 10 MG; Start 12/31/16 at 09:00 Gabapentin (Neurontin) 600 mg TID PO Last administered on 01/02/17 15:52; Admin Dose 600 MG; Start 12/31/16 at 09:00 Hydroxyzine HCl (Atarax) 50 mg Q6H PRN PO ITCHING; Start 12/31/16 at 06:30 Insulin Glargine (Lantus) 8 unit QAM SC Last administered on 01/02/17 10:24; Admin Dose 8 UNIT; Start 12/31/16 at 09:00 Multivit/Ca Carb/ B Cmplx/FA/Prenat (Kacey-Michael) 1 tab DAILY PO Last administered on 01/02/17 10:54; Admin Dose 1 TAB; Start 12/31/16 at 09:00 Oxybutynin Chloride (Ditropan) 5 mg BID PO Last administered on 01/02/17 10:54 ; Admin Dose 5 MG; Start 12/31/16 at 09:00 Polyethylene Glycol (Miralax) 17 gm DAILY PO Last administered on 01/02/17 10: 55; Admin Dose 17 GM; Start 12/31/16 at 09:00 Memantine (Namenda) 5 mg BID PO Last administered on 01/02/17 10:55; Admin Dose 5 MG; Start 12/31/16 at 09:00 Alprazolam (Xanax) 0.5 mg TID PO Last administered on 01/02/17 15:52; Admin Dose 0.5 MG; Start 12/31/16 at 09:00 Miscellaneous Information 1 ea NOTE XX ; Start 12/31/16 at 08:00 Glucose (Glutose) 15 gm Q15M PRN PO DECREASED GLUCOSE; Start 12/31/16 at 08:00 Glucose (Glutose) 22.5 gm Q15M PRN PO DECREASED GLUCOSE; Start 12/31/16 at 08: 00 Dextrose (D50w Syringe) 25 ml Q15M PRN IV DECREASED GLUCOSE; Start 12/31/16 at 08:00 Dextrose (D50w Syringe) 50 ml Q15M PRN IV DECREASED GLUCOSE; Start 12/31/16 at 08:00 Glucagon (Glucagen) 1 mg Q15M PRN IM DECREASED GLUCOSE; Start 12/31/16 at 08:00 Glucose (Glutose) 15 gm Q15M PRN BUCCAL DECREASED GLUCOSE; Start 12/31/16 at 08 :00 Famotidine (Pepcid Iv) 20 mg DAILY IV Last administered on 01/02/17 10:10; Admin Dose 20 MG; Start 01/01/17 at 09:00 Hydralazine HCl (Apresoline) 25 mg Q12 PO Last administered on 01/01/17 21:38 ; Admin Dose 25 MG; Start 12/31/16 at 21:00 Pregabalin (Lyrica) 75 mg BID PO Last administered on 01/02/17 10:54; Admin Dose 75 MG; Start 01/01/17 at 21:00 Levofloxacin (Levaquin) 250 mg Q48H PO ; Start 01/04/17 at 13:30 JORDI FLORES Jan 02, 2017 18:49
--- NOTE | 2017-01-02 18:50 | PN ---
DATE: 01/02/2017 SUBJECTIVE: No acute events. The patient is in hemodialysis, looks comfortable. Denies pain, no f alysa. WBC 6.6, no shift, no bands. INDWELLINGS: Patient has a left upper extremity AV fistula. ANTIMICROBIALS: Levaquin. PHYSICAL EXAMINATION: GENERAL: This is a morbidly obese, well-developed, middle-aged woman who is in no distress . HEENT: Head atraumatic, normocephalic. Sclerae anicteric. Buccal mucosa dry. NECK: Supple, trachea midline. CHEST: Rise symmetrical. Breath sounds diminished to bases. HEART: S1, S2. ABDOMEN: Soft, bowel sounds present. EXTREMITIES: No cyanosis. ASSESSMENT: 1. Status post systemic inflammatory response syndrome with leukocytosis on admission. 2. Possible urinary tract infection with right flank tenderness. 3. End-stage renal disease. 4. Morbid obesity. 5. Diabetes. PLAN: Patient remains stable. We are going to change Levaquin to p.o. Await for urine cultures. Continue management as per primary team. Dictated By: SIOBHAN WATSON IT ADMINISTRATOR for AMINTA TORREZ/RERE Conf#: [id number] DID#: [id number]
--- NOTE | 2017-01-02 20:34 | CONS ---
Date/Time of Note Date/Time of Note DATE: 01/02/17 TIME: 20:33 Assessment/Plan Assessment/Plan Chief Complaint/Hosp Course IMPRESSION: The patient has: 1. Uremia. better 2. End-stage renal disease. 3. Hypertension. 4. Diabetes mellitus. 5. Atherosclerotic heart disease. 6. Dyslipidemia. 7. Diabetic nephropathy, retinopathy and neuropathy. 8. Hyperkalemia. 9. Leukocytosis. 10. Anemia. 11. History of arteriovenous fistula placement, left upper extremity. PLAN HD Problems: Consultation Date/Type/Reason Admit Date/Time Dec 31, 2016 at 04:31 Type of Consultation: renal Referring Provider: STACIE TURNER 24 HR Interval Summary Constitutional: No chills, No diaphoresis Exam/Review of Systems Vital Signs Vitals Vital Signs Date Time Temp Pulse Resp B/P Pulse Ox O2 Delivery O2 Flow Rate FiO2 01/02/17 20:02 98.8 75 18 144/72 95 12/31/16 06:45 Room Air 12/31/16 01:00 2.0 Intake and Output 01/01/17 01/01/17 01/02/17 15:00 23:00 07:00 Intake Total 450 ml Balance 450 ml Exam Respiratory: clear to auscultation Cardiovascular: regular rate and rhythm Gastrointestinal: soft Musculoskeletal: nl extremities to inspection Extremities: normal pulses Results Result Diagram: 01/02/17 0546 01/02/17 0546 Results 24 hrs Laboratory Tests Test 01/01/17 21:33 01/02/17 05:46 01/02/17 08:10 01/02/17 11:40 Bedside Glucose 89 93 101 Alanine Aminotransferase (ALT/SGPT) 33 Albumin 3.7 Albumin/Globulin Ratio 1.08 Alkaline Phosphatase 239 H Anion Gap 21 H Aspartate Amino Transf (AST/SGOT) 27 Basophils # 0.0 Basophils % 0.3 Blood Urea Nitrogen 88 H Calcium Level 7.9 L Carbon Dioxide Level 24 Chloride Level 100 Creatinine 6.72 H Direct Bilirubin 0.00 Eosinophils # 0.3 Eosinophils % 3.9 Globulin 3.40 H Glucose Level 96 # Hematocrit 29.4 L Hemoglobin 9.1 L Indirect Bilirubin 0.0 Lymphocytes # 1.8 Lymphocytes % 27.6 Mean Corpuscular Hemoglobin 30.6 Mean Corpuscular Hemoglobin Concent 31.0 L Mean Corpuscular Volume 99.0 Mean Platelet Volume 10.3 # Monocytes # 0.6 Monocytes % 8.9 Neutrophils # 3.9 Neutrophils % 58.5 Nucleated Red Blood Cells # 0.0 Nucleated Red Blood Cells % 0.0 Platelet Count 176 Potassium Level 5.1 Red Blood Count 2.97 L Red Cell Distribution Width 16.2 H Sodium Level 140 Total Bilirubin 0.0 L Total Protein 7.1 White Blood Count 6.6 Test 01/02/17 17:16 Bedside Glucose 209 Medications Medications Current Medications Sodium Chloride (NS) 1,000 ml @ 40 mls/hr Q24H IV Last administered on 09:02; Admin Dose 40 MLS/HR; Start 12/31/16 at 06:04 Ondansetron HCl (Zofran Inj) 4 mg Q6H PRN IV NAUSEA AND/OR VOMITING; Start at 06:30 Nitroglycerin (Nitroglycerin (Sl Tab) 0.4 Mg) 1 tab Q5M PRN SL CHEST PAIN; Start 12/31/16 at 06:30 Acetaminophen (Tylenol Tab) 650 mg Q6H PRN PO PAIN LEVEL 1-3 OR FEVER; Start at 06:30 Acetaminophen/ Hydrocodone Bitart ([place] (5/325)) 1 tab Q6H PRN PO PAIN LEVEL 4 -6 Last administered on 01/01/17 08:31; Admin Dose 1 TAB; Start 12/31/16 at 06: 30 Docusate Sodium (Colace) 100 mg Q12H PRN PO CONSTIPATION Last administered on 20:45; Admin Dose 100 MG; Start 12/31/16 at 06:30 Heparin Sodium (Porcine) (Heparin (5000 Units/0.5 ml)) 5,000 unit Q12 SC Last administered on 01/02/17 10:11; Admin Dose 5,000 UNIT; Start 12/31/16 at 09:00 Brimonidine Tartrate (Alphagan P 0.1%) 1 drop BID RIGHT EYE Last administered on 01/02/17 10:53; Admin Dose 1 DROP; Start 12/31/16 at 09:00 Calcium/Vitamin D (Oyster Shell/ Vit-D (500/200)) 1 tab DAILY PO Last administered on 01/02/17 10:54; Admin Dose 1 TAB; Start 12/31/16 at 09:00 Dorzolamide/ Timolol (Cosopt) 1 drop BID BOTH EYES Last administered on 10:10; Admin Dose 1 DROP; Start 12/31/16 at 09:00 Escitalopram Oxalate (Lexapro) 10 mg QAM PO Last administered on 01/02/17 10: 54; Admin Dose 10 MG; Start 12/31/16 at 09:00 Gabapentin (Neurontin) 600 mg TID PO Last administered on 01/02/17 15:52; Admin Dose 600 MG; Start 12/31/16 at 09:00 Hydroxyzine HCl (Atarax) 50 mg Q6H PRN PO ITCHING; Start 12/31/16 at 06:30 Insulin Glargine (Lantus) 8 unit QAM SC Last administered on 01/02/17 10:24; Admin Dose 8 UNIT; Start 12/31/16 at 09:00 Multivit/Ca Carb/ B Cmplx/FA/Prenat (Kacey-Michael) 1 tab DAILY PO Last administered on 01/02/17 10:54; Admin Dose 1 TAB; Start 12/31/16 at 09:00 Oxybutynin Chloride (Ditropan) 5 mg BID PO Last administered on 01/02/17 10:54 ; Admin Dose 5 MG; Start 12/31/16 at 09:00 Polyethylene Glycol (Miralax) 17 gm DAILY PO Last administered on 01/02/17 10: 55; Admin Dose 17 GM; Start 12/31/16 at 09:00 Memantine (Namenda) 5 mg BID PO Last administered on 01/02/17 10:55; Admin Dose 5 MG; Start 12/31/16 at 09:00 Alprazolam (Xanax) 0.5 mg TID PO Last administered on 01/02/17 15:52; Admin Dose 0.5 MG; Start 12/31/16 at 09:00 Miscellaneous Information 1 ea NOTE XX ; Start 12/31/16 at 08:00 Glucose (Glutose) 15 gm Q15M PRN PO DECREASED GLUCOSE; Start 12/31/16 at 08:00 Glucose (Glutose) 22.5 gm Q15M PRN PO DECREASED GLUCOSE; Start 12/31/16 at 08: 00 Dextrose (D50w Syringe) 25 ml Q15M PRN IV DECREASED GLUCOSE; Start 12/31/16 at 08:00 Dextrose (D50w Syringe) 50 ml Q15M PRN IV DECREASED GLUCOSE; Start 12/31/16 at 08:00 Glucagon (Glucagen) 1 mg Q15M PRN IM DECREASED GLUCOSE; Start 12/31/16 at 08:00 Glucose (Glutose) 15 gm Q15M PRN BUCCAL DECREASED GLUCOSE; Start 12/31/16 at 08 :00 Famotidine (Pepcid Iv) 20 mg DAILY IV Last administered on 01/02/17 10:10; Admin Dose 20 MG; Start 01/01/17 at 09:00 Hydralazine HCl (Apresoline) 25 mg Q12 PO Last administered on 01/01/17 21:38 ; Admin Dose 25 MG; Start 12/31/16 at 21:00 Pregabalin (Lyrica) 75 mg BID PO Last administered on 01/02/17 10:54; Admin Dose 75 MG; Start 01/01/17 at 21:00 Levofloxacin (Levaquin) 250 mg Q48H PO ; Start 01/04/17 at 13:30 BRANDO TREVIÑO MD Jan 02, 2017 20:34
[2017-01-02] MEDS: HYDROCODONE/APAP (5/325) TAB PO PRN (23:52)
[2017-01-03] VITALS (7 sets, daily range): BP systolic 114–149; BP diastolic 54–77; PULSE 66–72; RESP 16–18
[2017-01-03] MEDS: INSULIN ASPART [NOVOLOG] 3 ML PEN SC SCH ×2 (07:40→12:36)
[2017-01-03] MEDS: DORZOLAMIDE/TIMOLOL 10 ML OPH BOTH EYES SCH (09:03)
[2017-01-03] MEDS: BRIMONIDINE 0.1% 5 ML OPH RIGHT EYE SCH (09:03)
[2017-01-03] MEDS: FAMOTIDINE 20 MG INJ IV SCH (09:03)
[2017-01-03] MEDS: HEPARIN 5,000 UNIT/0.5 ML SYG SC SCH (09:04)
[2017-01-03] MEDS: POLYETHYLENE GLYCOL 17 GM PACKET PO SCH (09:05)
[2017-01-03] MEDS: INSULIN GLARGINE [LANtus] 3 ML PEN SC SCH (09:05)
[2017-01-03] MEDS: OXYBUTYNIN 5 MG TAB PO SCH (09:06)
[2017-01-03] MEDS: MEMANTINE 5 MG TAB PO SCH (09:06)
[2017-01-03] MEDS: GABAPENTIN 300 MG CAP PO SCH ×2 (09:06→12:32)
[2017-01-03] MEDS: ALPRAZOLAM 0.25 MG TAB PO SCH ×2 (09:06→12:32)
[2017-01-03] MEDS: CALCIUM/VITAMIN D (500/200) TAB PO SCH (09:06)
[2017-01-03] MEDS: MULTIVIT/CA CARB/B CMPLX/FA TAB PO SCH (09:06)
[2017-01-03] MEDS: ESCITALOPRAM 10 MG TAB PO SCH (09:07)
[2017-01-03] MEDS: PREGABALIN 75 MG CAP PO SCH (09:07)
--- NOTE | 2017-01-03 11:17 | CONS ---
Date/Time of Note Date/Time of Note DATE: 01/03/17 TIME: 11:16 Assessment/Plan Assessment/Plan Chief Complaint/Hosp Course 51 YO obese F reports issues with swallowing for the last 2 months. Patient reports intermittent vomiting secondary to feeling that food is lodged at the bottom of her throat. 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 Patient states that tumor was preventing p.o. intake and she had a G-tube placed secondary to dysphagia. Patient states that the tumor resolved on its own without any type of treatment. She states that one day she was vomiting and tumor dislodged and was in emesis. Patient states she was previously treated at [facility] for esophageal tumor. Patient patient denies fever, chills, melena stools, and diarrhea. Patient reports intermittent epigastric pain but unsure of onset. Patient seems to have a constellation of symptoms and may be secondary to underlying mental health disorder. Patient also reports history of lymphoma that was diagnosed 2 years ago but unable to provide name of oncologist in her care. Patient reports completing 4 rounds of chemotherapy 2 years ago and does not recall any recent outpatient follow-up. Patient also has PMH of SRD on HD, Type II DM, Essential Hypertension, Diabetic Neuropathy, Anemia of chronic disease, Obesity, diabetic neuropathy/nephropathy , and depression. Problems: Additional Assessment/Plan Dysphagia * Passed swallow evaluation * Esophagram with Gastrografin does not note any mass or stricture * Advance diet diet * EGD not clinically indicated CHF/HTN * Cardiology following ESRD * on HD Type II DM Anemia * Likely secondary to CKD Obesity GI Sign off. Available prn for consultation Further recommendations pending clinical course Patient seen in collaboration with Dr. Lu Consultation Date/Type/Reason Admit Date/Time Dec 31, 2016 at 04:31 Type of Consultation: GI Referring Provider: STACIE TURNER 24 HR Interval Summary Free Text/Dictation Johnathan diet Esophagram normal EGD not clinically indicated GI sign off Exam/Review of Systems Vital Signs Vitals Vital Signs Date Time Temp Pulse Resp B/P Pulse Ox O2 Delivery O2 Flow Rate FiO2 01/03/17 08:56 97.9 72 18 114/54 96 12/31/16 06:45 Room Air 12/31/16 01:00 2.0 Intake and Output 01/02/17 01/02/17 01/03/17 15:00 23:00 07:00 Intake Total 200 ml 1250 ml 200 ml Output Total 2800 ml 2500 ml Balance -2600 ml -1250 ml 200 ml Exam Constitutional: alert, obese, oriented, well developed Psych: nl mood/affect Head: atraumatic Eyes: EOMI, nl conjunctiva, nl lids ENMT: nl external ears & nose Neck: non-tender Respiratory: normal air movement Cardiovascular: regular rate and rhythm Gastrointestinal: soft, non tender Musculoskeletal: nl extremities to inspection Neurological: HAND SHOE CUTTER II-XII intact Results Result Diagram: 01/02/17 0546 01/02/17 0546 Results 24 hrs Laboratory Tests Test 01/02/17 11:40 01/02/17 17:16 01/02/17 22:12 01/03/17 07:38 Bedside Glucose 101 209 224 H 137 Medications Medications Current Medications Ondansetron HCl (Zofran Inj) 4 mg Q6H PRN IV NAUSEA AND/OR VOMITING; Start at 06:30 Nitroglycerin (Nitroglycerin (Sl Tab) 0.4 Mg) 1 tab Q5M PRN SL CHEST PAIN; Start 12/31/16 at 06:30 Acetaminophen (Tylenol Tab) 650 mg Q6H PRN PO PAIN LEVEL 1-3 OR FEVER; Start at 06:30 Acetaminophen/ Hydrocodone Bitart ([place] (5/325)) 1 tab Q6H PRN PO PAIN LEVEL 4 -6 Last administered on 01/02/17 23:52; Admin Dose 1 TAB; Start 12/31/16 at 06: 30 Docusate Sodium (Colace) 100 mg Q12H PRN PO CONSTIPATION Last administered on 20:45; Admin Dose 100 MG; Start 12/31/16 at 06:30 Heparin Sodium (Porcine) (Heparin (5000 Units/0.5 ml)) 5,000 unit Q12 SC Last administered on 01/03/17 09:04; Admin Dose 5,000 UNIT; Start 12/31/16 at 09:00 Brimonidine Tartrate (Alphagan P 0.1%) 1 drop BID RIGHT EYE Last administered on 01/03/17 09:03; Admin Dose 1 DROP; Start 12/31/16 at 09:00 Calcium/Vitamin D (Oyster Shell/ Vit-D (500/200)) 1 tab DAILY PO Last administered on 01/03/17 09:06; Admin Dose 1 TAB; Start 12/31/16 at 09:00 Dorzolamide/ Timolol (Cosopt) 1 drop BID BOTH EYES Last administered on 09:03; Admin Dose 1 DROP; Start 12/31/16 at 09:00 Escitalopram Oxalate (Lexapro) 10 mg QAM PO Last administered on 01/03/17 09: 07; Admin Dose 10 MG; Start 12/31/16 at 09:00 Gabapentin (Neurontin) 600 mg TID PO Last administered on 01/03/17 09:06; Admin Dose 600 MG; Start 12/31/16 at 09:00 Hydroxyzine HCl (Atarax) 50 mg Q6H PRN PO ITCHING; Start 12/31/16 at 06:30 Insulin Glargine (Lantus) 8 unit QAM SC Last administered on 01/03/17 09:05; Admin Dose 8 UNIT; Start 12/31/16 at 09:00 Multivit/Ca Carb/ B Cmplx/FA/Prenat (Kacey-Michael) 1 tab DAILY PO Last administered on 01/03/17 09:06; Admin Dose 1 TAB; Start 12/31/16 at 09:00 Oxybutynin Chloride (Ditropan) 5 mg BID PO Last administered on 01/03/17 09:06 ; Admin Dose 5 MG; Start 12/31/16 at 09:00 Polyethylene Glycol (Miralax) 17 gm DAILY PO Last administered on 01/03/17 09: 05; Admin Dose 17 GM; Start 12/31/16 at 09:00 Memantine (Namenda) 5 mg BID PO Last administered on 01/03/17 09:06; Admin Dose 5 MG; Start 12/31/16 at 09:00 Alprazolam (Xanax) 0.5 mg TID PO Last administered on 01/03/17 09:06; Admin Dose 0.5 MG; Start 12/31/16 at 09:00 Miscellaneous Information 1 ea NOTE XX ; Start 12/31/16 at 08:00 Glucose (Glutose) 15 gm Q15M PRN PO DECREASED GLUCOSE; Start 12/31/16 at 08:00 Glucose (Glutose) 22.5 gm Q15M PRN PO DECREASED GLUCOSE; Start 12/31/16 at 08: 00 Dextrose (D50w Syringe) 25 ml Q15M PRN IV DECREASED GLUCOSE; Start 12/31/16 at 08:00 Dextrose (D50w Syringe) 50 ml Q15M PRN IV DECREASED GLUCOSE; Start 12/31/16 at 08:00 Glucagon (Glucagen) 1 mg Q15M PRN IM DECREASED GLUCOSE; Start 12/31/16 at 08:00 Glucose (Glutose) 15 gm Q15M PRN BUCCAL DECREASED GLUCOSE; Start 12/31/16 at 08 :00 Famotidine (Pepcid Iv) 20 mg DAILY IV Last administered on 01/03/17 09:03; Admin Dose 20 MG; Start 01/01/17 at 09:00 Hydralazine HCl (Apresoline) 25 mg Q12 PO Last administered on 01/03/17 09:07 ; Admin Dose 25 MG; Start 12/31/16 at 21:00 Pregabalin (Lyrica) 75 mg BID PO Last administered on 01/03/17 09:07; Admin Dose 75 MG; Start 01/01/17 at 21:00 Levofloxacin (Levaquin) 250 mg Q48H PO ; Start 01/04/17 at 13:30 TWAN LUDWIG Jan 03, 2017 11:17
--- NOTE | 2017-01-03 13:32 | CONS ---
Date/Time of Note Date/Time of Note DATE: 01/03/17 TIME: 13:30 Assessment/Plan Assessment/Plan Chief Complaint/Hosp Course SUBJECTIVE: No acute events. The patient is alert, looks comfortable. Denies pain, no fevers. INDWELLINGS: Left upper extremity AV fistula. ANTIMICROBIALS: Levaquin. PHYSICAL EXAMINATION: GENERAL: This is a morbidly obese, well-developed, middle-aged woman who is in no distress. HEENT: Head atraumatic, normocephalic. Sclerae anicteric. Buccal mucosa dry. NECK: Supple, trachea midline. CHEST: Rise symmetrical. Breath sounds diminished to bases. HEART: S1, S2. ABDOMEN: Soft, bowel sounds present. EXTREMITIES: No cyanosis. ASSESSMENT: 1. Status post systemic inflammatory response syndrome with leukocytosis on admission. 2. Possible urinary tract infection with right flank tenderness. 3. End-stage renal disease. 4. Morbid obesity. 5. Diabetes. PLAN: Patient remains stable. Continue Levaquin for 5 more days. Await for urine cultures. Continue management as per primary team. GI rec-s noted DW staff Problems: Consultation Date/Type/Reason Admit Date/Time Dec 31, 2016 at 04:31 Initial Consult Date Type of Consultation: ID Referring Provider: STACIE TURNER Exam/Review of Systems Vital Signs Vitals Vital Signs Date Time Temp Pulse Resp B/P Pulse Ox O2 Delivery O2 Flow Rate FiO2 01/03/17 12:20 97.7 68 16 149/69 100 Room Air 12/31/16 01:00 2.0 Intake and Output 01/02/17 01/02/17 01/03/17 15:00 23:00 07:00 Intake Total 200 ml 1250 ml 200 ml Output Total 2800 ml 2500 ml Balance -2600 ml -1250 ml 200 ml Results Result Diagram: 01/02/17 0546 01/02/17 0546 Results 24 hrs Laboratory Tests Test 01/02/17 17:16 01/02/17 22:12 01/03/17 07:38 01/03/17 12:24 Bedside Glucose 209 224 H 137 238 H Medications Medications Current Medications Ondansetron HCl (Zofran Inj) 4 mg Q6H PRN IV NAUSEA AND/OR VOMITING; Start at 06:30 Nitroglycerin (Nitroglycerin (Sl Tab) 0.4 Mg) 1 tab Q5M PRN SL CHEST PAIN; Start 12/31/16 at 06:30 Acetaminophen (Tylenol Tab) 650 mg Q6H PRN PO PAIN LEVEL 1-3 OR FEVER; Start at 06:30 Acetaminophen/ Hydrocodone Bitart ([place] (5/325)) 1 tab Q6H PRN PO PAIN LEVEL 4 -6 Last administered on 01/02/17 23:52; Admin Dose 1 TAB; Start 12/31/16 at 06: 30 Docusate Sodium (Colace) 100 mg Q12H PRN PO CONSTIPATION Last administered on 20:45; Admin Dose 100 MG; Start 12/31/16 at 06:30 Heparin Sodium (Porcine) (Heparin (5000 Units/0.5 ml)) 5,000 unit Q12 SC Last administered on 01/03/17 09:04; Admin Dose 5,000 UNIT; Start 12/31/16 at 09:00 Brimonidine Tartrate (Alphagan P 0.1%) 1 drop BID RIGHT EYE Last administered on 01/03/17 09:03; Admin Dose 1 DROP; Start 12/31/16 at 09:00 Calcium/Vitamin D (Oyster Shell/ Vit-D (500/200)) 1 tab DAILY PO Last administered on 01/03/17 09:06; Admin Dose 1 TAB; Start 12/31/16 at 09:00 Dorzolamide/ Timolol (Cosopt) 1 drop BID BOTH EYES Last administered on 09:03; Admin Dose 1 DROP; Start 12/31/16 at 09:00 Escitalopram Oxalate (Lexapro) 10 mg QAM PO Last administered on 01/03/17 09: 07; Admin Dose 10 MG; Start 12/31/16 at 09:00 Gabapentin (Neurontin) 600 mg TID PO Last administered on 01/03/17 12:32; Admin Dose 600 MG; Start 12/31/16 at 09:00 Hydroxyzine HCl (Atarax) 50 mg Q6H PRN PO ITCHING; Start 12/31/16 at 06:30 Insulin Glargine (Lantus) 8 unit QAM SC Last administered on 01/03/17 09:05; Admin Dose 8 UNIT; Start 12/31/16 at 09:00 Multivit/Ca Carb/ B Cmplx/FA/Prenat (Kacey-Michael) 1 tab DAILY PO Last administered on 01/03/17 09:06; Admin Dose 1 TAB; Start 12/31/16 at 09:00 Oxybutynin Chloride (Ditropan) 5 mg BID PO Last administered on 01/03/17 09:06 ; Admin Dose 5 MG; Start 12/31/16 at 09:00 Polyethylene Glycol (Miralax) 17 gm DAILY PO Last administered on 01/03/17 09: 05; Admin Dose 17 GM; Start 12/31/16 at 09:00 Memantine (Namenda) 5 mg BID PO Last administered on 01/03/17 09:06; Admin Dose 5 MG; Start 12/31/16 at 09:00 Alprazolam (Xanax) 0.5 mg TID PO Last administered on 01/03/17 12:32; Admin Dose 0.5 MG; Start 12/31/16 at 09:00 Miscellaneous Information 1 ea NOTE XX ; Start 12/31/16 at 08:00 Glucose (Glutose) 15 gm Q15M PRN PO DECREASED GLUCOSE; Start 12/31/16 at 08:00 Glucose (Glutose) 22.5 gm Q15M PRN PO DECREASED GLUCOSE; Start 12/31/16 at 08: 00 Dextrose (D50w Syringe) 25 ml Q15M PRN IV DECREASED GLUCOSE; Start 12/31/16 at 08:00 Dextrose (D50w Syringe) 50 ml Q15M PRN IV DECREASED GLUCOSE; Start 12/31/16 at 08:00 Glucagon (Glucagen) 1 mg Q15M PRN IM DECREASED GLUCOSE; Start 12/31/16 at 08:00 Glucose (Glutose) 15 gm Q15M PRN BUCCAL DECREASED GLUCOSE; Start 12/31/16 at 08 :00 Famotidine (Pepcid Iv) 20 mg DAILY IV Last administered on 01/03/17 09:03; Admin Dose 20 MG; Start 01/01/17 at 09:00 Hydralazine HCl (Apresoline) 25 mg Q12 PO Last administered on 01/03/17 09:07 ; Admin Dose 25 MG; Start 12/31/16 at 21:00 Pregabalin (Lyrica) 75 mg BID PO Last administered on 01/03/17t 09:07; Admin Dose 75 MG; Start 01/01/17 at 21:00 Levofloxacin (Levaquin) 250 mg Q48H PO ; Start 01/04/17 at 13:30 SIOBHAN WATSON NP Jan 03, 2017 13:31
[2017-01-03] MEDS ORDERED: LEVO250T9 PO (13:51)
[2017-01-03] MEDS ORDERED: LYR75 PO (13:51)
--- NOTE | 2017-01-03 15:18 | CONS ---
Date/Time of Note Date/Time of Note DATE: 01/03/17 TIME: 15:16 Assessment/Plan Assessment/Plan Additional Assessment/Plan 1. Abnormal electrocardiogram, assess for acute coronary syndrome.-troponin neg x 3/NL EF by echo this admit EF 55% - no ischemia suspected 2. Shortness of breath, assess for congestive heart failure- better now, rmove fluid with HD 3. Increased BNP, assess for congestive heart failure- acute on chronic, con't diuresis 4. Hypertension, currently under reasonable control. 5. End-stage renal disease on hemodialysis- Renal team follows 6. Diabetes mellitus - con't to keep euvolemic. 7. Psychiatric disorder - no agitation now. 8. Hyperkalemia. Consultation Date/Type/Reason Admit Date/Time Dec 31, 2016 at 04:31 Initial Consult Date Type of Consultation: ID Referring Provider: STACIE TURNER 24 HR Interval Summary Free Text/Dictation NO acute change - off tele - con't to keep euvolemic ROS: No fever, no chills, no nausea, no vomiting, no diarrhea/constipation No recent weight changes No chest pain, no PND, no orthopnea No dizziness, blurred vision No thirst, no heat or cold intolerance Exam/Review of Systems Vital Signs Vitals Vital Signs Date Time Temp Pulse Resp B/P Pulse Ox O2 Delivery O2 Flow Rate FiO2 01/03/17 12:20 97.7 68 16 149/69 100 Room Air 12/31/16 01:00 2.0 Intake and Output 01/02/17 01/02/17 01/03/17 15:00 23:00 07:00 Intake Total 200 ml 1250 ml 200 ml Output Total 2800 ml 2500 ml Balance -2600 ml -1250 ml 200 ml Exam General: WN/WD/NAD, AOx 2-3 HEENT: Unicetric/atraumatic/EOMI (follow commands) NECK: JVD elevated, no thyromegaly Lymph: no lymphadenopathy HEART: regular with no S3, II/ systolic murmur at apex LUNGS: Coarse sounds ABD: soft, NT, ND, +BS : Intact Neuro: non focal SKIN: chronic changes EXT: trace edema Results Result Diagram: 01/02/17 0546 01/02/1746 Results 24 hrs Laboratory Tests Test 01/02/17 17:16 01/02/17 22:12 01/03/17 07:38 01/03/17 12:24 Bedside Glucose 209 224 H 137 238 H Medications Medications Current Medications Ondansetron HCl (Zofran Inj) 4 mg Q6H PRN IV NAUSEA AND/OR VOMITING; Start at 06:30 Nitroglycerin (Nitroglycerin (Sl Tab) 0.4 Mg) 1 tab Q5M PRN SL CHEST PAIN; Start 12/31/16 at 06:30 Acetaminophen (Tylenol Tab) 650 mg Q6H PRN PO PAIN LEVEL 1-3 OR FEVER; Start at 06:30 Acetaminophen/ Hydrocodone Bitart ([place] (5/325)) 1 tab Q6H PRN PO PAIN LEVEL 4 -6 Last administered on 01/02/17 23:52; Admin Dose 1 TAB; Start 12/31/16 at 06: 30 Docusate Sodium (Colace) 100 mg Q12H PRN PO CONSTIPATION Last administered on 20:45; Admin Dose 100 MG; Start 12/31/16 at 06:30 Heparin Sodium (Porcine) (Heparin (5000 Units/0.5 ml)) 5,000 unit Q12 SC Last administered on 01/03/17 09:04; Admin Dose 5,000 UNIT; Start 12/31/16 at 09:00 Brimonidine Tartrate (Alphagan P 0.1%) 1 drop BID RIGHT EYE Last administered on 01/03/17 09:03; Admin Dose 1 DROP; Start 12/31/16 at 09:00 Calcium/Vitamin D (Oyster Shell/ Vit-D (500/200)) 1 tab DAILY PO Last administered on 01/03/17 09:06; Admin Dose 1 TAB; Start 12/31/16 at 09:00 Dorzolamide/ Timolol (Cosopt) 1 drop BID BOTH EYES Last administered on 09:03; Admin Dose 1 DROP; Start 12/31/16 at 09:00 Escitalopram Oxalate (Lexapro) 10 mg QAM PO Last administered on 01/03/17 09: 07; Admin Dose 10 MG; Start 12/31/16 at 09:00 Gabapentin (Neurontin) 600 mg TID PO Last administered on 01/03/17 12:32; Admin Dose 600 MG; Start 12/31/16 at 09:00 Hydroxyzine HCl (Atarax) 50 mg Q6H PRN PO ITCHING; Start 12/31/16 at 06:30 Insulin Glargine (Lantus) 8 unit QAM SC Last administered on 01/03/17 09:05; Admin Dose 8 UNIT; Start 12/31/16 at 09:00 Multivit/Ca Carb/ B Cmplx/FA/Prenat (Kacey-Michael) 1 tab DAILY PO Last administered on 01/03/17 09:06; Admin Dose 1 TAB; Start 12/31/16 at 09:00 Oxybutynin Chloride (Ditropan) 5 mg BID PO Last administered on 01/03/17 09:06 ; Admin Dose 5 MG; Start 12/31/16 at 09:00 Polyethylene Glycol (Miralax) 17 gm DAILY PO Last administered on 01/03/17 09: 05; Admin Dose 17 GM; Start 12/31/16 at 09:00 Memantine (Namenda) 5 mg BID PO Last administered on 01/03/17 09:06; Admin Dose 5 MG; Start 12/31/16 at 09:00 Alprazolam (Xanax) 0.5 mg TID PO Last administered on 01/03/17 12:32; Admin Dose 0.5 MG; Start 12/31/16 at 09:00 Miscellaneous Information 1 ea NOTE XX ; Start 12/31/16 at 08:00 Glucose (Glutose) 15 gm Q15M PRN PO DECREASED GLUCOSE; Start 12/31/16 at 08:00 Glucose (Glutose) 22.5 gm Q15M PRN PO DECREASED GLUCOSE; Start 12/31/16 at 08: 00 Dextrose (D50w Syringe) 25 ml Q15M PRN IV DECREASED GLUCOSE; Start 12/31/16 at 08:00 Dextrose (D50w Syringe) 50 ml Q15M PRN IV DECREASED GLUCOSE; Start 12/31/16 at 08:00 Glucagon (Glucagen) 1 mg Q15M PRN IM DECREASED GLUCOSE; Start 12/31/16 at 08:00 Glucose (Glutose) 15 gm Q15M PRN BUCCAL DECREASED GLUCOSE; Start 12/31/16 at 08 :00 Famotidine (Pepcid Iv) 20 mg DAILY IV Last administered on 01/03/17 09:03; Admin Dose 20 MG; Start 01/01/17 at 09:00 Hydralazine HCl (Apresoline) 25 mg Q12 PO Last administered on 01/03/17 09:07 ; Admin Dose 25 MG; Start 12/31/16 at 21:00 Pregabalin (Lyrica) 75 mg BID PO Last administered on 01/03/17 09:07; Admin Dose 75 MG; Start 01/01/17 at 21:00 Levofloxacin (Levaquin) 250 mg Q48H PO ; Start 01/04/17 at 13:30 GHAZAL TORRES MD Jan 03, 2017 15:18
--- NOTE | 2017-01-03 15:51 | PN ---
Date/Time of Note Date/Time of Note DATE: 01/03/17 TIME: 15:42 Assessment/Plan VTE Prophylaxis VTE Prophylaxis Intervention: heparin Lines/Catheters IV Catheter Type (from Nrsg): [facility] Urinary Cath still in place: No Assessment/Plan Assessment/Plan 1. Generalized weakness - multifactorial - Improved 2. CHF exac - acute on chronic diastolic dysfunction - last EF 55% - improved 3. Leukocytosis -resolved 4. ESRD on HD 5. Essential hypertension - controlled 6. Type II DM - good control 7. Anemia of CKD - stable 8. Depression - Stable 9. Left elbow pain - likely ALFREDO / Neuropathic 10. Obesity - CCD/Renal diet 11. Dysphagia: negative barium swallow. no EGD needed per GI 12. Generalized neuropathy 13. R flank tenderness r/o Pyelonephritis 14. 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 Debility s/p multiple falls 16. DVT prophylaxis: heparin Subjective 24 Hr Interval Summary Free Text/Dictation no distress Exam/Review of Systems Vital Signs Vitals Vital Signs Date Time Temp Pulse Resp B/P Pulse Ox O2 Delivery O2 Flow Rate FiO2 01/03/17 12:20 97.7 68 16 149/69 100 Room Air 12/31/16 01:00 2.0 Intake and Output 01/02/17 01/02/17 01/03/17 15:00 23:00 07:00 Intake Total 200 ml 1250 ml 200 ml Output Total 2800 ml 2500 ml Balance -2600 ml -1250 ml 200 ml Exam Constitutional: alert, well developed Psych: no complaints Head: atraumatic, normocephalic Eyes: EOMI, PERRL, nl conjunctiva ENMT: nl external ears & nose, nl lips & teeth, nl nasal mucosa & septum Neck: non-tender, supple Respiratory: clear to auscultation, normal air movement, No congested cough, No crackles/rales, No diminished breath sounds, No intercostal retraction, No labored breathing, No other, No respirations, No tactile fremitus, No wheezing Cardiovascular: nl pulses, regular rate and rhythm, No S3, No S4, No bruits, No diastolic murmur, No edema, No gallop, No irregular rhythm, No jugular venous distention (JVD), No murmurs/extra sounds, No other, No rub, No systolic murmur Gastrointestinal: nl liver, spleen, non-tender, soft, No ascites, No bowel sounds, No distended, No firm, No hepatomegaly, No mass , No other, No rebound or guarding, No splenomegaly, No surgical scars, No tender Musculoskeletal: nl extremities to inspection Neurological: [employer] II-XII intact, nl mental status, nl speech, nl strength Results Result Diagram: 01/02/17 0546 01/02/17 0546 Results 24 hrs Laboratory Tests Test 01/02/17 17:16 01/02/17 22:12 01/03/17 07:38 01/03/17 12:24 Bedside Glucose 209 224 H 137 238 H Medications Medications Current Medications Ondansetron HCl (Zofran Inj) 4 mg Q6H PRN IV NAUSEA AND/OR VOMITING; Start at 06:30 Nitroglycerin (Nitroglycerin (Sl Tab) 0.4 Mg) 1 tab Q5M PRN SL CHEST PAIN; Start 12/31/16 at 06:30 Acetaminophen (Tylenol Tab) 650 mg Q6H PRN PO PAIN LEVEL 1-3 OR FEVER; Start at 06:30 Acetaminophen/ Hydrocodone Bitart ([place] (5/325)) 1 tab Q6H PRN PO PAIN LEVEL 4 -6 Last administered on 01/02/17 23:52; Admin Dose 1 TAB; Start 12/31/16 at 06: 30 Docusate Sodium (Colace) 100 mg Q12H PRN PO CONSTIPATION Last administered on 20:45; Admin Dose 100 MG; Start 12/31/16 at 06:30 Heparin Sodium (Porcine) (Heparin (5000 Units/0.5 ml)) 5,000 unit Q12 SC Last administered on 01/03/17 09:04; Admin Dose 5,000 UNIT; Start 12/31/16 at 09:00 Brimonidine Tartrate (Alphagan P 0.1%) 1 drop BID RIGHT EYE Last administered on 01/03/17 09:03; Admin Dose 1 DROP; Start 12/31/16 at 09:00 Calcium/Vitamin D (Oyster Shell/ Vit-D (500/200)) 1 tab DAILY PO Last administered on 01/03/17 09:06; Admin Dose 1 TAB; Start 12/31/16 at 09:00 Dorzolamide/ Timolol (Cosopt) 1 drop BID BOTH EYES Last administered on 09:03; Admin Dose 1 DROP; Start 12/31/16 at 09:00 Escitalopram Oxalate (Lexapro) 10 mg QAM PO Last administered on 01/03/17 09: 07; Admin Dose 10 MG; Start 12/31/16 at 09:00 Gabapentin (Neurontin) 600 mg TID PO Last administered on 01/03/17 12:32; Admin Dose 600 MG; Start 12/31/16 at 09:00 Hydroxyzine HCl (Atarax) 50 mg Q6H PRN PO ITCHING; Start 12/31/16 at 06:30 Insulin Glargine (Lantus) 8 unit QAM SC Last administered on 01/03/17 09:05; Admin Dose 8 UNIT; Start 12/31/16 at 09:00 Multivit/Ca Carb/ B Cmplx/FA/Prenat (Kacey-Michael) 1 tab DAILY PO Last administered on 01/03/17 09:06; Admin Dose 1 TAB; Start 12/31/16 at 09:00 Oxybutynin Chloride (Ditropan) 5 mg BID PO Last administered on 01/03/17 09:06 ; Admin Dose 5 MG; Start 12/31/16 at 09:00 Polyethylene Glycol (Miralax) 17 gm DAILY PO Last administered on 01/03/17 09: 05; Admin Dose 17 GM; Start 12/31/16 at 09:00 Memantine (Namenda) 5 mg BID PO Last administered on 01/03/17 09:06; Admin Dose 5 MG; Start 12/31/16 at 09:00 Alprazolam (Xanax) 0.5 mg TID PO Last administered on 01/03/17 12:32; Admin Dose 0.5 MG; Start 12/31/16 at 09:00 Miscellaneous Information 1 ea NOTE XX ; Start 12/31/16 at 08:00 Glucose (Glutose) 15 gm Q15M PRN PO DECREASED GLUCOSE; Start 12/31/16 at 08:00 Glucose (Glutose) 22.5 gm Q15M PRN PO DECREASED GLUCOSE; Start 12/31/16 at 08: 00 Dextrose (D50w Syringe) 25 ml Q15M PRN IV DECREASED GLUCOSE; Start 12/31/16 at 08:00 Dextrose (D50w Syringe) 50 ml Q15M PRN IV DECREASED GLUCOSE; Start 12/31/16 at 08:00 Glucagon (Glucagen) 1 mg Q15M PRN IM DECREASED GLUCOSE; Start 12/31/16 at 08:00 Glucose (Glutose) 15 gm Q15M PRN BUCCAL DECREASED GLUCOSE; Start 12/31/16 at 08 :00 Famotidine (Pepcid Iv) 20 mg DAILY IV Last administered on 01/03/17 09:03; Admin Dose 20 MG; Start 01/01/17 at 09:00 Hydralazine HCl (Apresoline) 25 mg Q12 PO Last administered on 01/03/17 09:07 ; Admin Dose 25 MG; Start 12/31/16 at 21:00 Pregabalin (Lyrica) 75 mg BID PO Last administered on 01/03/17 09:07; Admin Dose 75 MG; Start 01/01/17 at 21:00 Levofloxacin (Levaquin) 250 mg Q48H PO ; Start 01/04/17 at 13:30 FAMILIA MELO MD Jan 03, 2017 15:51
--- NOTE | 2017-01-04 10:28 | DS ---
DATE OF ADMISSION: 12/31/2016 DATE OF DISCHARGE: 01/03/2017 PRESENTING COMPLAINT: Generalized weakness, fall and needs dialysis. ADMISSION DIAGNOSES: 1. Generalized weakness, multifactorial. 2. Congestive heart failure exacerbation, acute on chronic diastolic dysfunction. 3. Leukocytosis. Rule out influenza. 4. End-stage renal disease, on hemodialysis. 5. Essential hypertension. 6. Type 2 diabetes mellitus. 7. Anemia of chronic kidney disease. 8. Depression. 9. Left shoulder pain. 10. Obesity. CONSULTS ON THE CASE: 1. Dr. Akira Harmon for infectious disease. 2. Dr. Jono Silva for cardiology. 3. Dr. Liborio Campbell for nephrology. 4. Dr. Anil Lu for GI. INTERVENTIONS: 1. The patient had complained of a fall and she fell on her left shoulder and so she had a x-ray [facility] 12/31/2016 that showed prior left upper extremity soft tissue surgery. Otherwise unremarkabl e images of the shoulder. 2. She had a screening chest x-ray when she first came on 12/31/2016. It showed no evidence of acu te cardiopulmonary disease, and an enlarged cardiac silhouette. 3. Because of her generalized weakness she had a CT scan of the brain and it showed no acute intrac ranial pathology, with mild generalized volume loss, mild chronic microvascular ischemic changes, a small chronic infarction in the left frontal lobe, as well as atherosclerotic arterial calcification s. 4. To evaluate her dialysis fistula after she fell on her left side she had an upper extremity lilly rial study that was read as normal left upper extremity dialysis fistula. She also complained of se mohinder pain in her elbow during dialysis and so she had an elbow x-ray that just showed soft tissue sw elling and a vascular clip, consistent with prior surgery, without acute osseous abnormality of the left elbow. 5. 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 Otherwise an unremarkable esophagogram on her barium swallow study. 6. She did have a 2D echocardiogram on 12/31/2016 that showed an ejection fraction of 55%, with abn ormal diastolic dysfunction, with an elevated peak PA systolic pressure of 46 mmHg, with mild to mod erate tricuspid regurgitation. No other valvular deficits. HOSPITAL COURSE: Full details are available in the chart for review. In summary, this patient pres ented with generalized weakness after a fall and because of her weakness, had missed 1 episode of di alysis. She was found to be fluid overloaded because of this and she was admitted for diuresis. He r leukocytes were elevated when she first came in and there was some concern for an occult infection . She ended up being diagnosed with a gram-negative doron UTI growing out Lactobacillus species. She was treated with IV antibiotics, diuresed with the use of dialysis, and worked up for her nonspecif ic symptoms, as summarized above. She has done well at this time. She is tolerating a mechanical s oft diet and she is planned for outpatient further care with hemodialysis, as well as possibly EGD i f indicated. She is in stable condition. FINAL DIAGNOSES: 1. Generalized fall and weakness status post physical therapy review. The patient will be going sabiha e with home health for physical therapy. 2. Congestive heart failure exacerbation. Resolved. 3. Lactobacillus urinary tract infection. On treatment. 4. Chronic dysphagia, intermittent, status post barium swallow showing cricopharyngeal bar. Outpat ient EGD possible. 5. Chronic neuropathy with generalized nonspecific pain. Improved on Lyrica therapy. 6. Hypertension. Now controlled. 7. Type 2 diabetes mellitus. Fairly stable control. 8. Anemia of chronic kidney disease. Stable. 9. Chronic depression. Stable. 10. Obesity. On a calorie controlled diet. 11. Right-sided pyelonephritis with flank tenderness. 12. Old frontal lobe CVA. 13. Debility, status post multiple falls. DISPOSITION: To home, with home health. ACTIVITIES: As tolerated, with fall precautions. RECOMMENDED DIET: Calorie controlled diet/renal. Follow up will be with dialysis as previously kathy daphney, as well as with GI and primary care physician for continued workup of her comorbidities. Th is has all been communicated with the patient. Questions have been answered. Evaluation time has b een more than 40 minutes. Dictated By: STACIE TURNER MD, BA/NTS Conf#: [id number] DID#: [id number]
[2017-01-04] MEDS ORDERED: LEVOFLOXACIN 250 MG TAB PO SCH (13:30)
== END 2017-01-03 16:35 | disposition home health service (06) | DRG 291 ==
LOC: E/R 20:21 → MS4 12-31 04:31 → PP2 01-03 12:06
PROVIDERS: ADMIT Student in an Organized Health Care Education/Training Program; ATTEND Student in an Organized Health Care Education/Training Program
PROC: 5A1D60Z (ICD-10-PCS; principal; 2017-01-01)
DX: I13.2 Hypertensive heart and chronic kidney disease with heart failure and with stage 5 chronic kidney disease, or end stage renal disease (principal); I50.33 Acute on chronic diastolic (congestive) heart failure; N18.6 End stage renal disease; E11.21 Type 2 diabetes mellitus with diabetic nephropathy; E11.40 Type 2 diabetes mellitus with diabetic neuropathy, unspecified; N12 Tubulo-interstitial nephritis, not specified as acute or chronic; Z68.41 Body mass index [BMI] 40.0-44.9, adult; N39.0 Urinary tract infection, site not specified; E11.22 Type 2 diabetes mellitus with diabetic chronic kidney disease; D63.1 Anemia in chronic kidney disease; F32.9 Major depressive disorder, single episode, unspecified; M25.512 Pain in left shoulder; E66.9 Obesity, unspecified; I25.10 Atherosclerotic heart disease of native coronary artery without angina pectoris; D72.829 Elevated white blood cell count, unspecified; E11.319 Type 2 diabetes mellitus with unspecified diabetic retinopathy without macular edema; R13.10 Dysphagia, unspecified; E78.5 Hyperlipidemia, unspecified; E66.01 Morbid (severe) obesity due to excess calories; M25.522 Pain in left elbow; E87.5 Hyperkalemia; J45.909 Unspecified asthma, uncomplicated; K21.9 Gastro-esophageal reflux disease without esophagitis; B96.20 Unspecified Escherichia coli [E. coli] as the cause of diseases classified elsewhere; Z99.2 Dependence on renal dialysis; Z79.4 Long term (current) use of insulin; Z86.73 Personal history of transient ischemic attack (TIA), and cerebral infarction without residual deficits; Z90.49 Acquired absence of other specified parts of digestive tract; Z95.5 Presence of coronary angioplasty implant and graft
CPT/HCPCS: 36415; 70450; 71010; 73030; 74230; 80048; 80053; 80061; 82550; 82553; 82962; 83036; 83735; 83880; 84443; 84484; 85025; 85610; 85730; 87040; 87081; 87086; 87400; 90935; 92610; 93005; 93306; 93931; 96374; 96375; 97116; 97163; 97530; J0692; J1815; J1956; J2270; J2405; J3370; J7030; J7040

== ENCOUNTER 2017-03-02 22:29 | Emergency (ER) | payer OTHER ==
[~2017-03-02] VITALS: Ht 162.6 cm; Wt 113.6 kg
[~2017-03-02 22:29] MED LIST changes: -GABA-526 PO; +LEVO250T9 PO; +LYR75 PO; -NITR-58 PO
[2017-03-02 22:37] VITALS: Ht 162.6 cm; Wt 113.6 kg
[2017-03-03] MEDS ORDERED: morphine 2 MG INJ IV STA (01:17)
[2017-03-03] MEDS ORDERED: ONDANSETRON 4 MG INJ IV STA (01:17)
[2017-03-03] MEDS ORDERED: LIDOCAINE/MYLANTA 40 ML BTL PO ONE (01:30)
[2017-03-03 02:09] LABS: ADD SCAN DIFF NO
[2017-03-03 02:10] LABS: BASOPHIL # 0.1 10^3/ul (0.0-0.1); BASOPHILS % 0.7 % (0.0-2.0); EOSINOPHILS # 0.3 10^3/ul (0.0-0.5); EOSINOPHILS % 4.3 % (0.0-7.0); HEMATOCRIT 38.6 % (37.0-47.0); HEMOGLOBIN 11.9 g/dl (12.0-16.0); LYMPHOCYTES % 27.1 % (15.0-51.0); MEAN CORPUSCULAR HEMOGLOBIN 31.4 pg (29.0-33.0); MEAN CORPUSCULAR HGB CONC 30.8 g/dl (32.0-37.0); MEAN CORPUSCULAR VOLUME 101.8 fl (82.0-101.0); MONOCYTE # 0.6 10^3/ul (0.3-0.9); MONOCYTES % 8.3 % (0.0-11.0); NEUTROPHIL # 4.3 10^3/ul (1.6-7.5); NEUTROPHILS % 59.3 % (39.0-77.0); NUCLEATED RED BLOOD CELLS% 0.3 /100WBC (0.0-0.0); PLATELET COUNT 168 10^3/UL (140-415); RED BLOOD COUNT 3.79 10^6/ul (4.20-5.40); RED CELL DISTRIBUTION WIDTH 15.4 % (11.5-14.5); WHITE BLOOD COUNT 7.2 10^3/ul (4.8-10.8)
[2017-03-03 02:19] LABS: INR 1.03; PROTIME 13.5 Sec (12.2-14.2); PT RATIO 1.1
[2017-03-03 02:20] LABS: PARTIAL THROMBOPLASTIN TIME 25.8 Sec (25.0-35.0)
[2017-03-03 02:21] LABS: ALBUMIN 4.2 g/dl (3.3-4.9); CHLORIDE 97 mmol/L (97-110); POTASSIUM 4.6 mmol/L (3.5-5.1); SODIUM 138 mmol/L (135-144)
[2017-03-03 02:23] LABS: CREATININE 6.23 mg/dl (0.44-1.00)
[2017-03-03 02:23] LABS: ADD UMIC YES; URINE BILIRUBIN (Dip) NEGATIVE (NEGATIVE); URINE BLOOD (Dip) 1+ (NEGATIVE); URINE COLOR LT. YELLOW (YELLOW); URINE GLUCOSE (Dip) >=1000 % (NEGATIVE); URINE KETONES (Dip) NEGATIVE (NEGATIVE); URINE LEUKOCYTE ESTERASE (Dip) 1+ (NEGATIVE); URINE NITRITE (Dip) NEGATIVE (NEGATIVE); URINE TOTAL PROTEIN (Dip) 2+ (NEGATIVE); URINE UROBILINOGEN (Dip) 0.2 E.U./dL (0.1-1.0)
[2017-03-03 02:24] LABS: ALKALINE PHOSPHATASE 270 IU/L (42-121); ANION GAP 19 (8-16); ASPARTATE AMINO TRANSFERASE 28 IU/L (15-46); BILIRUBIN,INDIRECT 0.1 mg/dl (0-1.1); BILIRUBIN,TOTAL 0.1 mg/dl (0.2-1.3); BLOOD UREA NITROGEN 64 mg/dl (7-20); CALCIUM 9.1 mg/dl (8.4-10.2); CARBON DIOXIDE 27 mmol/L (21-31); GLUCOSE 350 mg/dl (70-220)
[2017-03-03 02:31] LABS: BACTERIA,URINE MODERATE; SQUAMOUS EPITHELIAL CELL,UR MODERATE; TRANSITIONAL EPI CELLS,URINE OCCASIONAL
--- NOTE | 2017-03-03 02:36 | RADRPT ---
PROCEDURE: CT ABDOMEN/PELVIS WITHOUT CONTRAST CLINICAL INDICATION: 52-year-old female with abdominal pain. TECHNIQUE: The study was performed utilizing a [employer] VCT 64-slice CT scanner. Direct axia l sections were obtained through the abdomen and pelvis without the use of intravenous contrast mate rial. Sagittal and coronal reformations were obtained. One or more of the following dose reduction t echniques were utilized: automated exposure control, adjustment of the mA and/or kV according to pat ient's size or use of iterative reconstruction technique. The images were reviewed on a PACS workst at[employer]. CTD/vol = 23.6 mGy; Total Exam DLP = 1457.6 mGy-cm. COMPARISON: CT abdomen/pelvis November 06, 2016. FINDINGS: Cardiomegaly is present. Marked coronary artery calcifications are present. There is minimal bibas ilar subsegmental atelectasis. There is no evidence for significant pleural effusion. The liver has a normal size and contour without focal areas of abnormal density. No intrahepatic nor extrahepatic biliary ductal dilatation is seen. Surgical clips are present within the gallbladder fossa from travis or cholecystectomy. The pancreas is without areas of abnormal attenuation. The spleen is identified and has a normal size without abnormal density. The adrenal glands are unremarkable. The kidneys ar e without abnormal density. No hydroureteronephrosis nor nephroureterolithiasis is evident. The urin sheryl bladder contains a small volume of urine as well as a focus of gas presumably from instrumentati on. There is retained stool within the ascending and transverse colon without obstruction. Multiple small diverticula are identified within the sigmoid colon without surrounding inflammatory changes. The appendix is not visualized however there is no periappendiceal inflammatory changes. The uterus has a lobular appearance with calcifications within it which are presumably degenerating fibroids as well as vascular calcifications. There are minimal bilateral inguinal hernias containing fat. There are shotty mesenteric lymph nodes present The aortoiliac vessels are mildly calcified bu t without aneurysmal dilatation. The osseous structures are intact. IMPRESSION: 1. Cardiomegaly with marked coronary artery calcifications. 2. Status post cholecystectomy. 3. Mild retained stool without obstruction. 4. Sigmoid diverticulosis. 5. Lobular appearance to the uterus with vascular calcifications and probable degenerating fibroids . 6. Shotty mesenteric lymph nodes. 7. Small focus of gas within the bladder presumably from instrumentation. 8. Minimal bilateral inguinal hernias containing fat. .Craig Lr MD, MD Date Time Electronically viewed and signed by .Craig Lr MD, on 03/03/2017 02:36 ./
[2017-03-03 02:51] LABS: ALANINE AMINOTRANSFERASE 33 IU/L (13-69); TROPONIN-I < 0.012 ng/ml (0.00-0.12)
[2017-03-03] MEDS ORDERED: CIPROFLOXACIN 400MG/D5W 200 ML IVPB ONE (04:00)
[2017-03-03] MEDS ORDERED: INSULIN LISPRO 100 UNIT/ML VIAL SC STA (04:45)
[2017-03-03] MEDS ORDERED: HYDR-906 PO (04:53)
[2017-03-03] MEDS ORDERED: ONDA4TAB14 PO (04:53)
[2017-03-03] MEDS ORDERED: LEVO250T9 PO (04:53)
[2017-03-03 05:13] VITALS: BP 127/90; PULSE 68; RESP 16; TEMP 98.2
--- NOTE | 2017-03-03 05:16 | ERD ---
ER Documentation Chief Complaint Date/Time DATE: 03/03/17 TIME: 05:10 Chief Complaint abdominal pain x 2 days HPI This 52-year-old female has increasing low middle and epigastric abdominal pain for the last 2 days. She is a dialysis patient and had dialysis today during which time the pain worsened she says. She's also had some nausea with this pain. Denies fever and chills. On questioning she does state that she makes urine and does sometimes get urinary tract infections. ROS All systems reviewed and are negative except as per history of present illness. Medications Home Meds Active Scripts Hydrocodone/Acetaminophen ([place] 5-325 Tablet) 1 Each Tablet, 1 EACH PO Q6, #14 TAB Prov:FIDEL MARLOW DO 03/03/17 Ondansetron (Ondansetron Odt) 4 Mg Tab.rapdis, 4 MG PO Q6H Y for NAUSEA AND/OR VOMITING, #10 TAB Prov:FIDEL MARLOW DO 03/03/17 Levofloxacin* (Levofloxacin*) 250 Mg Tablet, 250 MG PO Q48H, #5 TAB Prov:FIDEL MARLOW DO 03/03/17 Levofloxacin* (Levofloxacin*) 250 Mg Tablet, 250 MG PO Q48H, #3 TAB Prov:STACIE TURNER M. 01/03/17 Pregabalin* (Lyrica*) 75 Mg Capsule, 75 MG PO BID for 30 Days, CAP Prov:STACIE TURNER M. 01/03/17 Ondansetron (Ondansetron Odt) 4 Mg Tab.rapdis, 4 MG PO Q6H Y for NAUSEA AND/OR VOMITING, #10 TAB Prov:GUILLERMO WHITE MD 11/07/16 Polyethylene Glycol* (Miralax*) 17 Gm Powd.pack, 17 GM PO DAILY for 30 Days, BOX Prov:BERRY LARA MD 07/04/16 Insulin Glargine* (Lantus*) 100 Unit/Ml Soln, 8 UNIT SC QAM for 30 Days, BOT Prov:BERRY LARA MD 07/04/16 Reported Medications Insulin Aspart* (Novolog Insulin Pen*) 100 Unit/Ml Soln, 0 SC .SLIDING SCALE Q6 , EA 11/06/16 Hydrocodone/Acetaminophen ([place] 10-325 Tablet) 1 Each Tablet, 1 EACH PO Q4, TAB 11/06/16 Calcium Carbonate/Vitamin D3 ([place] 500+D Tablet) 1 Each Tablet, 1 EACH PO DAILY , TAB 11/06/16 Famotidine* (Famotidine*) 20 Mg Tablet, 20 MG PO DAILY, #30 TAB 11/06/16 Hydroxyzine Hcl* (Hydroxyzine Hcl*) 50 Mg Tablet, 50 MG PO Q6H Y for ITCHING, # 30 TAB 11/06/16 Docusate Sodium* (Docusate Sodium*) 100 Mg Capsule, 200 MG PO QHS, #60 CAP 11/06/16 Brimonidine Tartrate* (Alphagan P*) 0.1%-15 Ml Opht Drops, 1 DROP RIGHT EYE BID , #1 EA 01/27/16 Dorzolamide/Timolol* (Dorzolamide/Timolol*) 10 Ml Drops, 1 DROP BOTH EYES BID, # 1 EA 01/27/16 Memantine* (Namenda* XR) 14 Mg Cap.spr.24, 14 MG PO DAILY, #30 TAB 12/22/15 Escitalopram Oxalate* (Escitalopram Oxalate*) 10 Mg Tablet, 10 MG PO QAM, #30 TAB 12/22/15 Multivit/Ca Carb/B Cmplx/Fa* (Kacey-Michael*) 1 Tab Tab, 1 TAB PO DAILY, TAB 12/22/15 Alprazolam* (Alprazolam*) 0.5 Mg Tablet, 0.5 MG PO TID, TAB 12/22/15 Oxybutynin Chloride* (Ditropan*) 5 Mg Tablet, 5 MG PO BID 02/21/14 Allergies Allergies: Coded Allergies: Cephalosporins (Verified Allergy, Severe, 03/02/17) Has tolerated cefepime during March 2016 admission Penicillins (Verified Allergy, Mild, 03/02/17) Has tolerated Merrem during February 2016 admission PMhx/Soc History of Surgery: Yes (APPENDECTOMY, CHOLECYSTECTOMY, L arm AVF,cataract sx) Anesthesia Reaction: No Hx Neurological Disorder: No Hx Respiratory Disorders: No Hx Cardiac Disorders: Yes (CHF, STENT X2) Hx Psychiatric Problems: No Hx Miscellaneous Medical Probl: Yes (obesity, depression, diabetic neuropathy, ESRD on dialysis,diabetes) Hx Alcohol Use: No Hx Substance Use: No Hx Tobacco Use: No Smoking Status: Never smoker Physical Exam Vitals Vital Signs Date Time Temp Pulse Resp B/P Pulse Ox O2 Delivery O2 Flow Rate FiO2 03/03/17 01:18 66 17 155/72 100 Room Air 03/02/17 22:37 97.5 73 20 160/70 96 Physical Exam Const: [] No distress Head: Atraumatic Eyes: Normal Conjunctiva ENT: Normal External Ears, Nose and Mouth. Neck: Full range of motion..~ No meningismus. Resp: Clear to auscultation bilaterally Cardio: Regular rate and rhythm, no murmurs Abd: Soft, moderate epigastric tenderness, non distended. Normal bowel sounds Skin: No petechiae or rashes Back: No midline or flank tenderness Ext: No cyanosis, mild bilateral lower extremity edema Neur: Awake and alert and oriented 3, no focal deficits Psych: Normal Mood and Affect Result Diagram: 03/03/17 0145 03/03/17 0145 Results 24 hrs Laboratory Tests Test 03/03/17 01:15 03/03/17 01:45 03/03/17 01:55 03/03/17 04:55 Urine Color LT. YELLOW Urine Clarity SLIGHTLY CLOUDY Urine pH 5.5 Urine Specific [place] 1.020 Urine Ketones NEGATIVE Urine Nitrite NEGATIVE Urine Bilirubin NEGATIVE Urine Urobilinogen 0.2 E.U./dL Urine Leukocyte Esterase 1+ Urine Microscopic RBC 2-5/HPF Urine Microscopic WBC >50/HPF Urine Squamous Epithelial Cells MODERATE Urine Transitional Epithelial Cells OCCASIONAL Urine Bacteria MODERATE Urine Hemoglobin 1+ Urine Glucose >=1000% Urine Total Protein 2+ White Blood Count 7.210^3/ul Red Blood Count 3.7910^6/ul Hemoglobin 11.9g/dl Hematocrit 38.6% Mean Corpuscular Volume 101.8fl Mean Corpuscular Hemoglobin 31.4pg Mean Corpuscular Hemoglobin Concent 30.8g/dl Red Cell Distribution Width 15.4% Platelet Count 95820^3/UL Mean Platelet Volume 11.0fl Neutrophils % 59.3% Lymphocytes % 27.1% Monocytes % 8.3% Eosinophils % 4.3% Basophils % 0.7% Nucleated Red Blood Cells % 0.3/100WBC Neutrophils # 4.310^3/ul Lymphocytes # 2.010^3/ul Monocytes # 0.610^3/ul Eosinophils # 0.310^3/ul Basophils # 0.110^3/ul Nucleated Red Blood Cells # 0.010^3/ul Prothrombin Time 13.5Sec Prothrombin Time Ratio 1.1 INR International Normalized Ratio 1.03 Activated Partial Thromboplast Time 25.8Sec Sodium Level 138mmol/L Potassium Level 4.6mmol/L Chloride Level 97mmol/L Carbon Dioxide Level 27mmol/L Anion Gap 19 Blood Urea Nitrogen 64mg/dl Creatinine 6.23mg/dl Glucose Level 350mg/dl Calcium Level 9.1mg/dl Total Bilirubin 0.1mg/dl Direct Bilirubin 0.00mg/dl Indirect Bilirubin 0.1mg/dl Aspartate Amino Transf (AST/SGOT) 28IU/L Alanine Aminotransferase (ALT/SGPT) 33IU/L Alkaline Phosphatase 270IU/L Troponin I < 0.012ng/ml Total Protein 8.0g/dl Albumin 4.2g/dl Globulin 3.80g/dl Albumin/Globulin Ratio 1.10 Lipase 85U/L Lactic Acid Level 1.3mmol/L Bedside Glucose 273mg/dL Current Medications Medications (Trade) Dose Ordered Sig/Renan Route PRN Reason Start Time Stop Time Status Last Admin Dose Admin Morphine Sulfate (morphine) 2 mg ONCE STAT IV 03/03/17 01:17 03/03/17 01:20 DC 03/03/17 01:56 Ondansetron HCl (Zofran Inj) 4 mg ONCE STAT IV 03/03/17 01:17 03/03/17 01:20 DC 03/03/17 01:56 Miscellaneous Medication 40 ml 40 ml ONCE ONCE PO 03/03/17 01:30 03/03/17 01:31 DC 03/03/17 01:56 Ciprofloxacin/ Dextrose (Cipro Ivpb) 200 ml @ 200 mls/hr ONCE ONCE IVPB 03/03/17 04:00 03/03/17 04:59 DC 03/03/17 04:14 Insulin Human Lispro (Humalog) 4 unit ONCE STAT SC 03/03/17 04:45 03/03/17 04:47 DC 03/03/17 04:57 Procedures/MDM Complicated UTI secondary to dialysis patient. Because of her allergy she was given 4 mg of Cipro IV in the emergency room. She is also given low-dose form units of lispro for hyperglycemia. She was given morphine for her pain as well as Zofran for nausea both of which relieved her symptoms. CT is negative for any acute emergent processes. She has no signs of sepsis currently. Urine culture is taken as well as blood culture. Going to discharge her with renal dose Levaquin for healthcare associated urinary tract infection. Also discharging her with Mcclure for pain and Zofran in case she experiences nausea again. She'll be called with culture results of Levaquin is not covered her infection. Recommended primary care follow up within the next 2 days for better glycemic control. Cousin epigastric pain and nausea and dialysis patient with risk factors cardiac workup was also performed is negative for ischemia. CT did show some constipation giving her medication for this as well. EKG interpretation: Normal sinus rhythm rate of 62, normal axis, no ST or T- wave changes concerning for acute ischemia. Normal EKG CT abdomen and pelvis interpretation: Retained stool throughout colon, no obstruction, no free air, no abnormal fat stranding. No fractures Departure Diagnosis: Primary Impression: Hyperglycemia due to type 2 diabetes mellitus Additional Impressions: Complicated UTI (urinary tract infection) Abdominal pain Condition: Stable Patient Instructions: Abdominal Pain, Understanding Urinary Tract Infections ( UTIs) Additional Instructions: Call your primary care doctor TOMORROW for an appointment during the next 1-2 days.See the doctor sooner or return here if your condition worsens before your appointment time. FIDEL MARLOW DO Mar 03, 2017 05:15
== END 2017-03-03 05:27 | disposition home or self-care (01) ==
LOC: E/R 22:29
DX: E11.65 Type 2 diabetes mellitus with hyperglycemia (principal); N39.0 Urinary tract infection, site not specified; R11.0 Nausea; I50.9 Heart failure, unspecified; N18.6 End stage renal disease; E66.9 Obesity, unspecified; Z68.41 Body mass index [BMI] 40.0-44.9, adult; Z79.4 Long term (current) use of insulin; Z99.2 Dependence on renal dialysis; Z98.61 Coronary angioplasty status
CPT/HCPCS: 36415; 74176; 80053; 81001; 82962; 83605; 83690; 84484; 85025; 85610; 85730; 93005; 96372; 96374; 96375; J0744; J1815; J2270; J2405; Z7502; Z7610; 81003

== ENCOUNTER 2017-03-08 01:52 | Emergency (ER) | payer OTHER ==
[~2017-03-08] VITALS: Ht 160 cm; Wt 80.0 kg
[~2017-03-08 01:52] MED LIST changes: +HYDR-906 PO
[2017-03-08 01:55] VITALS: Ht 160 cm; Wt 80.0 kg
--- NOTE | 2017-03-08 02:53 | ERA ---
ER Documentation Chief Complaint Date/Time DATE: 03/08/17 TIME: 02:52 Chief Complaint Left leg pain HPI The patient is a 52-year-old female, presenting to the ER because of left leg pain after she had a mechanical fall about an hour and half prior to arrival. The pain is worse with movement. She denies syncope, near syncope, seizure, head injury, facial pain, neck pain, chest pain, abdominal pain, vomiting, dysuria, diarrhea. She does not smoke nor drink Past medical history: Diabetes mellitus, history of CHF, CAD, diabetic neuropathy, chronic kidney disease on hemodialysis Friday and Friday , obesity Past surgical history: Appendectomy, cholecystectomy, stent PCI, left upper extremity AV fistula ROS All systems reviewed and are negative except as per history of present illness. Medications Home Meds Active Scripts Hydrocodone/Acetaminophen ([place] 5-325 Tablet) 1 Each Tablet, 1 TAB PO Q6H Y for PAIN, #7 TAB Prov:FANTASMA OROZCO MD 03/08/17 Hydrocodone/Acetaminophen ([place] 5-325 Tablet) 1 Each Tablet, 1 EACH PO Q6, #14 TAB Prov:FIDEL MARLOW DO 03/03/17 Ondansetron (Ondansetron Odt) 4 Mg Tab.rapdis, 4 MG PO Q6H Y for NAUSEA AND/OR VOMITING, #10 TAB Prov:FIDEL MARLOW DO 03/03/17 Levofloxacin* (Levofloxacin*) 250 Mg Tablet, 250 MG PO Q48H, #5 TAB Prov:FIDEL MARLOW DO 03/03/17 Levofloxacin* (Levofloxacin*) 250 Mg Tablet, 250 MG PO Q48H, #3 TAB Prov:STACIE TURNER 01/03/17 Pregabalin* (Lyrica*) 75 Mg Capsule, 75 MG PO BID for 30 Days, CAP Prov:STACIE TURNER 01/03/17 Ondansetron (Ondansetron Odt) 4 Mg Tab.rapdis, 4 MG PO Q6H Y for NAUSEA AND/OR VOMITING, #10 TAB Prov:GUILLERMO WHITE MD 11/07/16 Polyethylene Glycol* (Miralax*) 17 Gm Powd.pack, 17 GM PO DAILY for 30 Days, BOX Prov:BERRY LARA MD 07/04/16 Insulin Glargine* (Lantus*) 100 Unit/Ml Soln, 8 UNIT SC QAM for 30 Days, BOT Prov:BERRY LARA MD 07/04/16 Reported Medications Insulin Aspart* (Novolog Insulin Pen*) 100 Unit/Ml Soln, 0 SC .SLIDING SCALE Q6 , EA 11/06/16 Hydrocodone/Acetaminophen ([place] 10-325 Tablet) 1 Each Tablet, 1 EACH PO Q4, TAB 11/06/16 Calcium Carbonate/Vitamin D3 (Oysco 500+D Tablet) 1 Each Tablet, 1 EACH PO DAILY , TAB 11/06/16 Famotidine* (Famotidine*) 20 Mg Tablet, 20 MG PO DAILY, #30 TAB 11/06/16 Hydroxyzine Hcl* (Hydroxyzine Hcl*) 50 Mg Tablet, 50 MG PO Q6H Y for ITCHING, # 30 TAB 11/06/16 Docusate Sodium* (Docusate Sodium*) 100 Mg Capsule, 200 MG PO QHS, #60 CAP 11/06/16 Brimonidine Tartrate* (Alphagan P*) 0.1%-15 Ml Opht Drops, 1 DROP RIGHT EYE BID , #1 EA 01/27/16 Dorzolamide/Timolol* (Dorzolamide/Timolol*) 10 Ml Drops, 1 DROP BOTH EYES BID, # 1 EA 01/27/16 Memantine* (Namenda* XR) 14 Mg Cap.spr.24, 14 MG PO DAILY, #30 TAB 12/22/15 Escitalopram Oxalate* (Escitalopram Oxalate*) 10 Mg Tablet, 10 MG PO QAM, #30 TAB 12/22/15 Multivit/Ca Carb/B Cmplx/Fa* (Kacey-Michael*) 1 Tab Tab, 1 TAB PO DAILY, TAB 12/22/15 Alprazolam* (Alprazolam*) 0.5 Mg Tablet, 0.5 MG PO TID, TAB 12/22/15 Oxybutynin Chloride* (Ditropan*) 5 Mg Tablet, 5 MG PO BID 02/21/14 Allergies Allergies: Coded Allergies: Cephalosporins (Verified Allergy, Severe, 03/02/17) Has tolerated cefepime during March 2016 admission Penicillins (Verified Allergy, Mild, 03/02/17) Has tolerated Merrem during February 2016 admission PMhx/Soc History of Surgery: Yes (APPENDECTOMY, CHOLECYSTECTOMY, L arm AVF,cataract sx) Anesthesia Reaction: No Hx Neurological Disorder: No Hx Respiratory Disorders: No Hx Cardiac Disorders: Yes (CHF, STENT X2) Hx Psychiatric Problems: No Hx Miscellaneous Medical Probl: Yes (obesity, depression, diabetic neuropathy, ESRD on dialysis,diabetes) Hx Alcohol Use: No Hx Substance Use: No Hx Tobacco Use: No Physical Exam Vitals Vital Signs Date Time Temp Pulse Resp B/P Pulse Ox O2 Delivery O2 Flow Rate FiO2 03/08/17 03:19 Nasal Cannula 2 03/08/17 03:10 98.4 75 20 142/62 99 Nasal Cannula 2.0 03/08/17 01:55 98.9 81 24 155/71 95 Physical Exam Const: No acute distress. Very anxious Head: Atraumatic. Eyes: Normal Conjunctiva. ENT: Normal External Ears, Nose and Mouth. Neck: Full range of motion. No meningismus. Resp: Clear to auscultation bilaterally. Cardio: Regular rate and rhythm, no murmurs. Abd: Soft, non distended, normal bowel sounds, non tender. Skin: No petechiae or rashes. Back: No midline or flank tenderness. Ext: No cyanosis, or edema. Vague left hip , left femur, left tibia, left ankle, left foot tenderness. No erythema, no edema, no laceration. Moderate left knee tenderness with crepitus, no laceration, no ecchymosis Neur: Awake and alert. No focal deficit Psych: Normal Mood and Affect. Result Diagram: 03/08/17 0300 03/08/17 0300 Results 24 hrs Laboratory Tests Test 03/08/17 03:00 White Blood Count 8.110^3/ul Red Blood Count 3.5610^6/ul Hemoglobin 11.1g/dl Hematocrit 35.7% Mean Corpuscular Volume 100.3fl Mean Corpuscular Hemoglobin 31.2pg Mean Corpuscular Hemoglobin Concent 31.1g/dl Red Cell Distribution Width 14.9% Platelet Count 98183^3/UL Mean Platelet Volume 10.7fl Neutrophils % 71.2% Lymphocytes % 15.7% Monocytes % 7.9% Eosinophils % 4.3% Basophils % 0.4% Nucleated Red Blood Cells % 0.0/100WBC Neutrophils # 5.810^3/ul Lymphocytes # 1.310^3/ul Monocytes # 0.610^3/ul Eosinophils # 0.410^3/ul Basophils # 0.010^3/ul Nucleated Red Blood Cells # 0.010^3/ul Prothrombin Time 13.5Sec Prothrombin Time Ratio 1.1 INR International Normalized Ratio 1.03 Activated Partial Thromboplast Time 28.5Sec Sodium Level 131mmol/L Potassium Level 4.8mmol/L Chloride Level 93mmol/L Carbon Dioxide Level 25mmol/L Anion Gap 18 Blood Urea Nitrogen 64mg/dl Creatinine 6.24mg/dl Glucose Level 560mg/dl Calcium Level 8.6mg/dl Current Medications Medications (Trade) Dose Ordered Sig/Renan Route PRN Reason Start Time Stop Time Status Last Admin Dose Admin Morphine Sulfate (morphine) 2 mg ONCE ONCE IV 03/08/17 03:00 03/08/17 03:04 DC 03/08/17 03:12 Ondansetron HCl (Zofran Inj) 4 mg ONCE STAT IV 03/08/17 03:00 03/08/17 03:04 DC 03/08/17 03:11 Morphine Sulfate (morphine) 2 mg ONCE ONCE IV 03/08/17 03:30 03/08/17 03:31 DC 03/08/17 03:30 Morphine Sulfate (morphine) 2 mg ONCE ONCE IV 03/08/17 04:00 03/08/17 04:01 DC 03/08/17 03:40 Insulin Human Lispro (Humalog) 16 unit ONCE ONCE SC 03/08/17 04:09 03/08/17 04:10 DC 03/08/17 04:19 Morphine Sulfate (morphine) 2 mg ONCE ONCE IV 03/08/17 06:30 03/08/17 06:31 UNV Morphine Sulfate (morphine) 2 mg ONCE ONCE IV 03/08/17 06:30 03/08/17 06:31 03/08/17 06:18 Procedures/MDM EKG: Read by emergency physician Rate/Rhythm: Normal Sinus Rhythm 73 beats/min QRS, ST, T-waves: No ST elevation, no T inversion Impression: Normal EKG She had left hip, left femur, left knee, left tibia-fibula, left ankle, left foot x-ray that show questionable fracture of the medial tibial plateau. [facility] [address] [address] Radiology Main Line: [phone] DIAGNOSTIC IMAGING REPORT Patient: MARC CONTRERAS : 1965 Age: 52 Sex: F [id number] DOS: 03/08/17 0405 Ordering MD: FANTASMA OROZCO MD Location: E/R Room/Bed: PROCEDURE: CT left knee without contrast CLINICAL INDICATION: Pain TECHNIQUE: Spiral CT images through the left knee without the use of contrast. Multiplanar reconstructions. The total exam CTDI equals 18.16 mGy and the total exam DLP equals 306.51 mGy-cm. . One or more of the following dose reduction techniques were used: automated exposure control, adjustment of the mA and/or kV according to patient size, or use of iterative reconstruction technique. COMPARISON: X-rays from today FINDINGS: Large suprapatellar effusion is seen. Again seen is extensive tricompartmental osteoarthritic change of the knee. Osteophytes, subchondral sclerosis, and narrowing of the medial and patellofemoral compartments again seen. Extensive vascular calcification. No definite fracture or dislocation. Small intra- articular loose bodies. IMPRESSION: Tricompartmental osteoarthritis and large knee effusion. No definite fracture. If internal derangement suspected clinically, follow-up MRI would be suggested. RPTAT: [facility] Physician Fermín Date Time Electronically viewed and signed by Physician Fermín on 03/08/2017 05 :43 LE/ CC: FANTASMA OROZCO MD MEDICAL MAKING DECISION: The patient is a 52-year-old female, presenting with acute left knee pain and acute diabetic hyperglycemia. She was treated with morphine 2 mg IV 4 for pain, Zofran 4 mg IV 1 for nausea, Humalog 16 units subcutaneously for acute diabetic hyperglycemia The differential diagnoses considered include but are not limited to fracture, contusion, sprain, internal derangement Departure Diagnosis: Primary Impression: Knee pain, left Additional Impressions: Diabetes mellitus with hyperglycemia Anemia Condition: Good Comments She was discharged with Betty I discussed the findings with the patient. I advised the patient to follow-up with the primary physician in about 1-2 days, sooner if needed and return if any concern. She was advised that she would need to have an MRI for further evaluation FANTASMA OROZCO MD Mar 08, 2017 02:53
[2017-03-08] MEDS ORDERED: ONDANSETRON 4 MG INJ IV STA (03:00)
[2017-03-08] MEDS ORDERED: morphine 2 MG INJ IV ONE ×5 (03:00→06:30)
[2017-03-08 03:31] LABS: ADD SCAN DIFF NO
[2017-03-08 03:39] LABS: BASOPHILS % 0.4 % (0.0-2.0); EOSINOPHILS # 0.4 10^3/ul (0.0-0.5); EOSINOPHILS % 4.3 % (0.0-7.0); HEMATOCRIT 35.7 % (37.0-47.0); HEMOGLOBIN 11.1 g/dl (12.0-16.0); LYMPHOCYTES # 1.3 10^3/ul (0.8-2.9); LYMPHOCYTES % 15.7 % (15.0-51.0); MEAN CORPUSCULAR HEMOGLOBIN 31.2 pg (29.0-33.0); MEAN CORPUSCULAR HGB CONC 31.1 g/dl (32.0-37.0); MEAN CORPUSCULAR VOLUME 100.3 fl (82.0-101.0); MEAN PLATELET VOLUME 10.7 fl (7.4-10.4); MONOCYTE # 0.6 10^3/ul (0.3-0.9); MONOCYTES % 7.9 % (0.0-11.0); NEUTROPHIL # 5.8 10^3/ul (1.6-7.5); NEUTROPHILS % 71.2 % (39.0-77.0); PLATELET COUNT 168 10^3/UL (140-415); RED BLOOD COUNT 3.56 10^6/ul (4.20-5.40); RED CELL DISTRIBUTION WIDTH 14.9 % (11.5-14.5); WHITE BLOOD COUNT 8.1 10^3/ul (4.8-10.8)
[2017-03-08 03:44] LABS: INR 1.03; PROTIME 13.5 Sec (12.2-14.2); PT RATIO 1.1
[2017-03-08 03:45] LABS: PARTIAL THROMBOPLASTIN TIME 28.5 Sec (25.0-35.0)
--- NOTE | 2017-03-08 03:52 | RADRPT ---
PROCEDURE: XR left ankle CLINICAL INDICATION: pain TECHNIQUE: 3 views were performed. COMPARISON: None. FINDINGS: No definite fracture, dislocation, and/or effusion is seen. The ankle mortise is grossly intact. M ild diffuse soft tissue edema. No definite abnormal calcification. IMPRESSION: No definite acute bony abnormality. RPTAT: [facility] Lakeisha Oviedo Physician Date Time Electronically viewed and signed by Lakeisha Oviedo, Physician on 03/08/2017 03:52 LE/
[2017-03-08 03:54] LABS: POTASSIUM 4.8 mmol/L (3.5-5.1)
--- NOTE | 2017-03-08 03:55 | RADRPT ---
PROCEDURE: Chest. CLINICAL INDICATION: Chest pain. TECHNIQUE: Single frontal view of the chest was obtained. COMPARISON: 12/31/2016. FINDINGS: The cardiac silhouette is magnified. The aortic arch is calcified. There is mild left basilar atel ectasis. There is no focal consolidation, vascular congestion or pleural effusion. There is no pne umothorax. IMPRESSION: Mild left basilar atelectasis. Aortic atherosclerosis. .Ab Jorgensen MD, MD Date Time Electronically viewed and signed by .Ab Jorgensen MD, MD on 03/08/2017 03:55 .T/
[2017-03-08 03:56] LABS: CREATININE 6.24 mg/dl (0.44-1.00)
[2017-03-08 03:57] LABS: CALCIUM 8.6 mg/dl (8.4-10.2)
--- NOTE | 2017-03-08 03:57 | RADRPT ---
PROCEDURE: Left femur. CLINICAL INDICATION: Pain. TECHNIQUE: 4 views of the left femur were performed. COMPARISON: None. FINDINGS: There is no fracture, dislocation or bone destruction. There is mild narrowing of the left hip join t space. There is moderate narrowing of the medial compartment of the knee with marginal osteophyte s present. Bone mineralization is decreased. Vascular calcifications are present. IMPRESSION: No evidence of acute fracture. Osteopenia. Moderate osteoarthritis of the knee. Vascular calcifications reflective of atherosclerosis. .Ab Jorgensen MD, Date Time Electronically viewed and signed by .Ab Jorgensen MD, on 03/08/2017 03:56 .T/
--- NOTE | 2017-03-08 03:59 | RADRPT ---
PROCEDURE: Left knee. CLINICAL INDICATION: Pain. TECHNIQUE: Three views including AP, lateral and oblique views of the left knee were obtained. T he images reviewed on a PACS workstation. COMPARISON: None. FINDINGS: There is a questionable fracture of the medial tibial plateau. There is moderate narrowing of the m edial compartment and patellofemoral joint. Marginal osteophytes are present. There is a moderate joint effusion. Bone mineralization is decreased. Vascular calcifications are present. IMPRESSION: Questionable fracture of the medial tibial plateau. Further evaluation can be made by CT. Moderate joint effusion. Moderate osteoarthritis. Osteopenia. Vascular calcifications reflective of atherosclerosis. .Ab Jorgensen MD, Date Time Electronically viewed and signed by .bA Jorgensen MD, on 03/08/2017 03:58 .T/
--- NOTE | 2017-03-08 04:01 | RADRPT ---
PROCEDURE: Left foot. CLINICAL INDICATION: Pain. TECHNIQUE: Three views including AP, lateral and oblique views of the left foot were obtained. T he images were reviewed on a PACS workstation. COMPARISON: None. FINDINGS: There is no fracture, dislocation or bone destruction. The joint spaces are within normal limits. The third metatarsal is shortened. Bone mineralization is decreased. There is no radiopaque foreig n body or abnormal calcification. IMPRESSION: No evidence of fracture. Osteopenia. .Ab Jorgensen MD, MD Date Time Electronically viewed and signed by .Ab Jorgensen MD, MD on 03/08/2017 04:01 .T/
--- NOTE | 2017-03-08 04:02 | RADRPT ---
PROCEDURE: Left hip. CLINICAL INDICATION: Pain. TECHNIQUE: Two views of the left hip were obtained. COMPARISON: None. FINDINGS: There is no fracture, dislocation or bone destruction. There is mild narrowing of the left hip join t space. Bone mineralization is decreased. Vascular calcifications are present. IMPRESSION: No evidence of fracture. Osteopenia. Vascular calcifications reflective of atherosclerosis. .Ab Jorgensen MD, Date Time Electronically viewed and signed by .Ab Jorgensen MD, on 03/08/2017 04:02 .T/
--- NOTE | 2017-03-08 04:03 | RADRPT ---
PROCEDURE: Left tibia and fibula. CLINICAL INDICATION: Pain. TECHNIQUE: 4 views including AP and lateral views of the left tibia and fibula were obtained. COMPARISON: None. FINDINGS: There is a questionable fracture of the medial tibial plateau. There is moderate narrowing of the me dial compartment and patellofemoral joint. Marginal osteophytes are present. There is a moderate charlene nt effusion. Bone mineralization is decreased. Vascular calcifications are present. IMPRESSION: Questionable fracture of the medial tibial plateau. Further evaluation can be made by CT. Moderate joint effusion. Moderate osteoarthritis. Osteopenia. Vascular calcifications reflective of atherosclerosis. .Ab Jorgensen MD, MD Date Time Electronically viewed and signed by .Ab Jorgensen MD, MD on 03/08/2017 04:03 .T/
[2017-03-08] MEDS ORDERED: INSULIN LISPRO 100 UNIT/ML VIAL SC ONE (04:09)
--- NOTE | 2017-03-08 05:43 | RADRPT ---
PROCEDURE: CT left knee without contrast CLINICAL INDICATION: Pain TECHNIQUE: Spiral CT images through the left knee without the use of contrast. Multiplanar recons tructions. The total exam CTDI equals 18.16 mGy and the total exam DLP equals 306.51 mGy-cm. . One or more of the following dose reduction techniques were used: automated exposure control, adjustmen t of the mA and/or kV according to patient size, or use of iterative reconstruction technique. COMPARISON: X-rays from today FINDINGS: Large suprapatellar effusion is seen. Again seen is extensive tricompartmental osteoarthritic espinoza e of the knee. Osteophytes, subchondral sclerosis, and narrowing of the medial and patellofemoral c ompartments again seen. Extensive vascular calcification. No definite fracture or dislocation. Sma ll intra-articular loose bodies. IMPRESSION: Tricompartmental osteoarthritis and large knee effusion. No definite fracture. If internal derange ment suspected clinically, follow-up MRI would be suggested. RPTAT: [facility] Physician Fermín Date Time Electronically viewed and signed by Physician Fermín on 03/08/2017 05:43 LE/
[2017-03-08] MEDS ORDERED: HYDR-906 PO (06:18)
[2017-03-08 08:12] VITALS: BP 120/67; PULSE 67; RESP 20; TEMP 98.3
== END 2017-03-08 08:20 | disposition home or self-care (01) ==
LOC: E/R 01:52
DX: M25.562 Pain in left knee (principal); E11.65 Type 2 diabetes mellitus with hyperglycemia; D64.9 Anemia, unspecified; I50.9 Heart failure, unspecified; I25.10 Atherosclerotic heart disease of native coronary artery without angina pectoris; N18.6 End stage renal disease; E66.9 Obesity, unspecified; Z99.2 Dependence on renal dialysis; Z79.4 Long term (current) use of insulin; Z98.61 Coronary angioplasty status
CPT/HCPCS: 36415; 71010; 73510; 73550; 73562; 73590; 73610; 73630; 73700; 80048; 85025; 85610; 85730; 93005; 96372; 96374; 96375; 96376; J1815; J2270; J2405; Z7502